=== PATIENT | male | born 1960 | race Caucasian/White ===

== ENCOUNTER 2016-10-29 16:05 | Emergency (ER) | payer BC ==
[~2016-10-29] VITALS: Ht 167.6 cm; Wt 122.5 kg
[~2016-10-29 16:05] MED LIST: ALBUAER2 INH; ASPCH81X PO; ATEN-175 PO; B-COCAP2 PO; BNC/4025 PO; CINNAMON PO; MULT-506 PO; OMEG10007 PO
[2016-10-29 16:08] VITALS: TEMP 36.8
[2016-10-29] MEDS ORDERED: ALBUT/IPRATROP 3MG/0.5MG NEB 3 ML VIAL INH STA ×2 (17:18→20:26)
[2016-10-29] MEDS ORDERED: METHYLPREDNISOLONE 125 MG VIAL IV STA (17:23)
[2016-10-29 17:26] VITALS: Ht 167.6 cm; Wt 122.5 kg
[2016-10-29 17:38] LABS: BASO % 0.6 %; BASO ABS # 0.02 K/uL (0-0.2); COMPLETE YES; EOS % 3.9 %; HEMATOCRIT 43.1 % (42-52); IG% 0.3 %; LYMPH % 35.3 %; LYMPH ABS # 1.28 K/uL (1.2-3.4); MEAN CELL VOLUME 89.6 fL (80-100); MEAN CORPUSCULAR HEMOGLOBIN 30.4 pg (25-34); MEAN CORPUSCULAR HGB CONC 33.9 g/dl (32-36); MEAN PLATELET VOLUME 10.1 fL (7.4-10.4); MONO % 9.6 %; NEUT % 50.3 %; PLATELET COUNT 195 K/uL (130-400); RED BLOOD COUNT 4.81 M/uL (4.7-6.1); WHITE BLOOD COUNT 3.63 K/uL (4.8-10.8)
[2016-10-29] MEDS ORDERED: ONDANSETRON INJ 2 MG/ML 2 ML VIAL ONE (17:41)
[2016-10-29] MEDS ORDERED: TRAM-10 PO (17:44)
[2016-10-29] MEDS ORDERED: PHEN-905 PO (17:44)
[2016-10-29] MEDS ORDERED: DICL-201 PO (17:44)
[2016-10-29 17:46] VITALS: O2SAT 97
--- NOTE | 2016-10-29 17:56 | DIAGNOSTIC IMAGING REPORT ---
CHEST ONE VIEW PORTABLE HISTORY: EVALUATE RESPIRATORY DISTRESS.DYSPNEA COMPARISON: Chest 11/22/2015. FINDINGS: Mild enlargement cardiac silhouette. This has progressed. The lungs are clear. No pleural effusions. No pneumothorax. IMPRESSION: Mild enlargement of the cardiac silhouette which has progressed in the interval. This could be due to cardiomegaly or a pericardial effusion. Follow-up echocardiogram should be considered for further evaluation. Electronically signed by: Shai Carbajal M.D. 10/29/2016 5:54 PM Dictated Date/Time: 10/29/2016 5:53 PM
[2016-10-29 18:24] LABS: ALKALINE PHOSPHATASE 44 U/L (45-117); ALT/SGPT 46 U/L (12-78); BLOOD UREA NITROGEN 17 mg/dl (7-18); CARBON DIOXIDE 28 mmol/L (21-32); CHLORIDE 104 mmol/L (98-107); CREATININE 0.79 mg/dl (0.60-1.40); GLUCOSE 98 mg/dl (70-99)
[2016-10-29 18:25] LABS: ALB/GLOB RATIO 0.9 (0.9-2); AST/SGOT 21 U/L (15-37); BUN/CREATININE RATIO 21.1 (10-20); POTASSIUM 3.9 mmol/L (3.5-5.1); SODIUM 142 mmol/L (136-145)
[2016-10-29 20:41] LABS: URINE APPEARANCE CLEAR (CLEAR); URINE BILIRUBIN NEG (NEG); URINE COLOR DK YELLOW; URINE NITRITE NEG (NEG); URINE SPECIFIC GRAVITY 1.027 (1.000-1.030); UROBILINOGEN NEG (NEG)
[2016-10-29 20:47] LABS: MANUAL MICROSCOPIC REQUIRED? NO; REVIEW REQ? NO
[2016-10-29] MEDS ORDERED: PRED50TA PO (21:10)
[2016-10-29] MEDS ORDERED: ALBUTEROL HFA 8 GM INHALER INH ONE (21:15)
[2016-10-29 21:21] VITALS: BP 96/67; PULSE 81; O2SAT 95
--- NOTE | 2016-10-29 23:23 | EMERGENCY ROOM VISIT NOTE ---
History Report prepared by Jyothiibmykel: Chelsie Macedo Under the Supervision of: Dr. Vince Lerner M.D. First contact with patient: 17:02 Chief Complaint: FLU LIKE SX Stated Complaint: COUGH, RUNNY NOSE History of Present Illness The patient is a 55 year old male who presents to the Emergency Room with complaints of a worsening cough that started on October 11, 2016. He denies any fevers but admits to some recent shortness of breath. An Albuterol inhaler has provided moderate relief for the cough. The patient reports he feels like there is a "rattling" in his chest when he breathes. He notes he took NyQuil last night, which helped him sleep, but today his cough worsened and he has started experiencing pain around the top of his rib cage from the amount of coughing. He denies any recent sick contacts, but notes he was off work because of the recent holidays and just started back to work late last week. The patient also denies any LOC, headache, chills, diaphoresis, visual changes, neck pain, chest pain, nausea, vomiting, abdominal pain, back pain, melena, hematochezia, urinary symptoms, numbness, weakness, lymphadenopathy, rash, or other complaints. Source of History: patient Onset: October 11, 2016 Position: chest Timing: worsening Modifying Factors (Relieving): other (Albuterol inhaler ) Associated Symptoms: + SOB Review of Systems See HPI for pertinent positives and negatives. A total of ten systems were reviewed and were otherwise negative. Past Medical & Surgical Medical Problems: (1) Asthma (2) Hypertension Social History Smoking Status: Never Smoker Alcohol Use: none Drug Use: none Marital Status: single Housing Status: lives with family Occupation Status: employed Current/Historical Medications Scheduled Aspirin (Aspirin Chewable), 81 MG PO QPM Atenolol (Tenormin), 100 MG PO QPM Diclofenac (Voltaren), 75 MG PO DAILY Fish Oil ([place]-3), 1 CAP PO QPM Multivitamin (Multivitamin), 1 TAB PO QPM Olmesartan/Hctz (Benicar Hct 40/25), 1 TAB PO QPM Prednisone (Prednisone), 50 MG PO DAILY Vitamin B Cmplx/Vitc/Folic Ac (Nephrocaps), 1 CAP PO QPM [Cinnamon], 2,000 MG PO QPM Scheduled PRN Albuterol (Ventolin Hfa), 1-2 PUFFS INH BID PRN for Shortness of Breath Lndobdwbgbkil-Rvroajhoig-Totff (Nyquil Severe Cold/Flu 5-6.25-10-325 mg/15Ml), 30 ML PO DIRECTED PRN for Cough Tramadol (Ultram), 50 MG PO HS PRN for Pain Allergies Coded Allergies: NO KNOWN DRUG ALLERGIES (Verified Allergy, Unknown, ., 10/29/16) Physical Exam Vital Signs Date Time Temp Pulse Resp B/P Pulse Ox O2 Delivery O2 Flow Rate FiO2 10/29/16 21:21 81 16 96/67 95 10/29/16 19:41 64 20 106/72 94 Room Air 10/29/16 18:01 73 10/29/16 17:56 65 20 107/78 100 Room Air 10/29/16 17:46 97 Room Air 10/29/16 16:08 36.8 72 17 129/94 95 Room Air Physical Exam GENERAL: Awake, alert, well-appearing, in no distress HENT: Normocephalic, atraumatic. Oropharynx unremarkable. EYES: Normal conjunctiva. Sclera non-icteric. NECK: Supple. No nuchal rigidity. FROM. No JVD. RESPIRATORY: Expiratory wheezing bilaterally, worse on the right, scattered rhonchi. CARDIAC: Regular rate, normal rhythm. Extremities warm and well perfused. Pulses equal. ABDOMEN: Soft, non-distended. No tenderness to palpation. No rebound or guarding. No masses. RECTAL: Deferred. MUSCULOSKELETAL: Chest examination reveals no tenderness. The back is symmetrical on inspection without obvious abnormality. There is no CVA tenderness to palpation. No joint edema. LOWER EXTREMITIES: Calves are equal size bilaterally and non-tender. No edema. No discoloration. NEURO: Normal sensorium. No sensory or motor deficits noted. SKIN: No rash or jaundice noted. Medical Decision & Procedures ER Provider Diagnostic Interpretation: This X-Ray was reviewed and interpreted by myself and the radiologist. CHEST ONE VIEW PORTABLE HISTORY: EVALUATE RESPIRATORY DISTRESS, DYSPNEA COMPARISON: Chest 11/22/2015. FINDINGS: Mild enlargement cardiac silhouette. This has progressed. The lungs are clear. No pleural effusions. No pneumothorax. IMPRESSION: Mild enlargement of the cardiac silhouette which has progressed in the interval. This could be due to cardiomegaly or a pericardial effusion. Follow-up echocardiogram should be considered for further evaluation. Electronically signed by: Shai Carbajal M.D. 10/29/2016 5:54 PM Dictated Date/Time: 10/29/2016 5:53 PM Laboratory Results 10/29/16 17:18 Red Blood Count 4.81, Mean Corpuscular Volume 89.6, Mean Corpuscular Hemoglobin 30.4, Mean Corpuscular Hemoglobin Concent 33.9, Mean Platelet Volume 10.1, Neutrophils (%) (Auto) 50.3, Lymphocytes (%) (Auto) 35.3, Monocytes (%) (Auto) 9.6, Eosinophils (%) (Auto) 3.9, Basophils (%) (Auto) 0.6, Neutrophils # (Auto) 1.83, Lymphocytes # (Auto) 1.28, Monocytes # (Auto) 0.35, Eosinophils # (Auto) 0.14, Basophils # (Auto) 0.02 10/29/16 17:18 Test 10/29/16 17:18 10/29/16 20:21 White Blood Count 3.63 K/uL (4.8-10.8) Red Blood Count 4.81 M/uL (4.7-6.1) Hemoglobin 14.6 g/dL (14.0-18.0) Hematocrit 43.1 % (42-52) Mean Corpuscular Volume 89.6 fL (80-100) Mean Corpuscular Hemoglobin 30.4 pg (25-34) Mean Corpuscular Hemoglobin Concent 33.9 g/dl (32-36) Platelet Count 195 K/uL (130-400) Mean Platelet Volume 10.1 fL (7.4-10.4) Neutrophils (%) (Auto) 50.3 % Lymphocytes (%) (Auto) 35.3 % Monocytes (%) (Auto) 9.6 % Eosinophils (%) (Auto) 3.9 % Basophils (%) (Auto) 0.6 % Neutrophils # (Auto) 1.83 K/uL (1.4-6.5) Lymphocytes # (Auto) 1.28 K/uL (1.2-3.4) Monocytes # (Auto) 0.35 K/uL (0.11-0.59) Eosinophils # (Auto) 0.14 K/uL (0-0.5) Basophils # (Auto) 0.02 K/uL (0-0.2) RDW Standard Deviation 44.5 fL (36.4-46.3) RDW Coefficient of Variation 13.5 % (11.5-14.5) Immature Granulocyte % (Auto) 0.3 % Immature Granulocyte # (Auto) 0.01 K/uL (0.00-0.02) Anion Gap 10.0 mmol/L (3-11) Est Creatinine Clear Calc Drug Dose 127.3 ml/min Estimated GFR () 115.5 Estimated GFR (Non- 99.7 BUN/Creatinine Ratio 21.1 (10-20) Calcium Level 9.0 mg/dl (8.5-10.1) Total Bilirubin 0.3 mg/dl (0.2-1) Aspartate Amino Transf (AST/SGOT) 21 U/L (15-37) Alanine Aminotransferase (ALT/SGPT) 46 U/L (12-78) Alkaline Phosphatase 44 U/L (45-117) Troponin I < 0.015 ng/ml (0-0.045) Total Protein 7.5 gm/dl (6.4-8.2) Albumin 3.6 gm/dl (3.4-5.0) Globulin 3.9 gm/dl (2.5-4.0) Albumin/Globulin Ratio 0.9 (0.9-2) Urine Color DK YELLOW Urine Appearance CLEAR (CLEAR) Urine pH 6.0 (4.5-7.5) Urine Specific Damar 1.027 (1.000-1.030) Urine Protein NEG (NEG) Urine Glucose (UA) NEG (NEG) Urine Ketones NEG (NEG) Urine Occult Blood NEG (NEG) Urine Nitrite NEG (NEG) Urine Bilirubin NEG (NEG) Urine Urobilinogen NEG (NEG) Urine Leukocyte Esterase NEG (NEG) Laboratory results reviewed by me Medications Administered Medications (Trade) Dose Ordered Sig/Kristin Route Start Time Stop Time Status Last Admin Dose Admin Albuterol/ Ipratropium (Duoneb) 3 ml NOW STAT INH 10/29/16 17:18 10/29/16 17:20 DC 10/29/16 17:38 3 ML Methylprednisolone Sodium Succinate (Solu-Medrol IV) 125 mg NOW STAT IV 10/29/16 17:23 10/29/16 17:24 DC 1/9/17 17:38 125 MG Ondansetron HCl (Zofran Inj) 4 mg STK-MED ONCE .ROUTE 10/29/16 17:41 10/29/16 17:42 DC 10/29/16 17:45 4 MG Albuterol/ Ipratropium (Duoneb) 3 ml NOW STAT INH 10/29/16 20:26 10/29/16 20:27 DC 10/29/16 20:34 3 ML Prednisone (PredniSONE TAB) 60 mg NOW STAT PO 10/29/16 20:28 10/29/16 20:30 DC 10/29/16 20:34 60 MG Albuterol (Ventolin Hfa Inhaler) 2 puffs NOW ONCE INH 10/29/16 21:15 10/29/16 21:16 DC 10/29/16 21:15 2 PUFFS ECG Indication: weakness Rate (beats per minute): 57 Rhythm: sinus bradycardia Findings: RBBB, no acute ischemic change, no ectopy ED Course 1715: The patient was evaluated in room B7. A complete history and physical exam was performed. 1717: DuoNeb 3 ml INH. 172: Solu-Medrol 125 mg IV. 1740: Zofran 4 mg IV. 2025: DuoNeb 3 ml INH. 2027: Prednisone 60 mg PO. 2029: I reevaluated the patient. He is feeling much better. He is still wheezing but is doing well. I will order another nebulizer treatment. 2114: Albuterol 2 puffs INH. 2119: I reevaluated the patient. He is feeling much better. I discussed his results and discharge instructions and he verbalized complete agreement and understanding. Medical Decision Triage Nursing notes reviewed. The patient's presentation and history were concerning for respiratory issues. Etiologies such as pneumonia, COPD, reactive airway disease, CHF, cardiac ischemia, pulmonary embolism, pneumothorax, musculoskeletal, infections, gastrointestinal, as well as others were entertained. The patient was wheezing. He was given a DuoNeb as well as Solu-Medrol. Chest x-ray did not reveal any evidence of pneumonia. On reassessment the patient was feeling better. He notes this started out when he had a flulike illness. I suspect that he has a qenm-izruqdngt-sexb syndrome. He has a history of reactive airways. The patient was given a second neb treatment and felt much better. His ECG was negative for acute changes. A CBC, chemistry panel, troponin and LFTs are normal. The patient was given prednisone and an albuterol MDI her to discharge. There is no indication for antibiotics at this time. The patient felt comfortable with conservative management. Incidentally patient was noted to have a minimally enlarged cardiac silhouette compared to prior. He was told to follow with his PCP. He will be contacted with this radiologic finding in the morning and notified that his PCP should pay attention to this and an outpatient echo was recommended. He has no signs to suggest CHF, myocarditis, or tamponade. By the evaluation outlined above other emergent etiologies such as those listed in the differential, as well as others, were deemed relatively unlikely. The patient was informed about the findings as listed above. All questions were answered and he was pleased with the treatment. Return instructions were outlined and the patient was discharged in stable condition. The patient was referred to his PCP for follow-up this week for a recheck of the current condition. The chart was completed utilizing [employer] voice recognition software. Grammatical errors, random word insertions, pronoun errors, and incomplete sentences are an occasional consequence of this system due to software limitations, ambient noise, and hardware issues. Any formal questions or concerns about the content, text, or information contained within the body of this dictation should be directly addressed to the physician for clarification. Impression Primary Impression: RAD (reactive airway disease) Additional Impression: Post-influenza syndrome Scribe Attestation The scribe's documentation has been prepared under my direction and personally reviewed by me in its entirety. I confirm that the note above accurately reflects all work, treatment, procedures, and medical decision making performed by me. Departure Information Dispostion Home / Self-Care Prescriptions Prednisone (Prednisone) 50 Mg Tab 50 MG PO DAILY for 4 Days, #4 TAB Prov: Vince Lerner MD 10/29/16 Referrals Jackson Morales D.O.Int.Med. (PCP) Patient Instructions A Signature Page, My [facility] Additional Instructions Diagnosis: 1. Reactive airway disease 2. Yjpa-wyzpahrvj-rqtr syndrome Albuterol Inhaler: Take 2 puffs four times daily for five days, then as needed. Prednisone 50mg: Once daily until the prescription is finished. It is best to take this earlier in the day as some patients note occasional difficulty falling asleep when taken in the late evening. Acetaminophen(Tylenol) may be used for fever or pain. Use 1000mg every six hours as needed. Avoid using more than 4000mg in a 24 hour period. (AND/OR) Ibuprofen(Motrin, Advil) may be used for fever or pain. Use 600mg every six hours as needed. Take with food. Avoid using more than 2400mg in a 24 hour period. Do not use 2400mg per day for more than three consecutive days without physician direction. Prolonged inappropriate use can lead to stomach upset or ulcers. Rest and drink plenty of fluids. Avoid smoke/smoking, fumes, dust, or any triggers in the past that may have affected your breathing. Continue current medications. Return to the ER for chest pain, difficulty breathing, fevers, vomiting, worsening of your condition, or as needed. Follow up with your primary physician this week for a recheck of your current condition.
== END 2016-10-29 21:44 | disposition home or self-care (01) ==
LOC: C.EDB 16:08
DX: J45.909 Unspecified asthma, uncomplicated (principal); R05 Cough; R06.02 Shortness of breath; I10 Essential (primary) hypertension; Z79.82 Long term (current) use of aspirin; Z79.899 Other long term (current) drug therapy

== ENCOUNTER → 2017-01-21 | Outpatient (CLI) | payer BC ==
[~2017-01-21] MED LIST changes: +DICL-201 PO; +LPT/20 PO; +PHEN-905 PO; +TRAM-10 PO
[2017-01-21 16:45] LABS: ALT/SGPT 94 U/L (12-78); BLOOD UREA NITROGEN 21 mg/dl (7-18); BUN/CREATININE RATIO 27.4 (10-20); CALCIUM 9.1 mg/dl (8.5-10.1); CARBON DIOXIDE 31 mmol/L (21-32); CHLORIDE 102 mmol/L (98-107); CREATININE 0.78 mg/dl (0.60-1.40); GLUCOSE 100 mg/dl (70-99); POTASSIUM 3.7 mmol/L (3.5-5.1); SODIUM 141 mmol/L (136-145)
[2017-01-21 16:48] LABS: ALKALINE PHOSPHATASE 50 U/L (45-117); AST/SGOT 35 U/L (15-37); CHOLESTEROL 233 mg/dl (0-200); CHOLESTEROL/HDL RATIO 6.5; HDL CHOLESTEROL 36 mg/dl; LDL CHOLESTEROL CALCULATED 120 mg/dl; TRIGLYCERIDES 386 mg/dl (0-150); VERY LOW DENSITY LIPOPROT CALC 77 mg/dl
== END | disposition home or self-care (01) ==
LOC: C.LAB1850 14:35
PROVIDERS: ATTEND Family Medicine
DX: I10 Essential (primary) hypertension (principal); E78.5 Hyperlipidemia, unspecified

== ENCOUNTER 2017-02-16 16:26 | Emergency (ER) | payer BC ==
[~2017-02-16] VITALS: Ht 167.6 cm; Wt 127.0 kg
[~2017-02-16 16:26] MED LIST changes: -LPT/20 PO
[2017-02-16 16:29] VITALS: TEMP 36.7; Ht 167.6 cm; Wt 127.0 kg
[2017-02-16] MEDS ORDERED: LPT/20 PO (16:39)
[2017-02-16] MEDS ORDERED: CEPHALEXIN MONOHYDRATE 250 MG CAP PO ONE (16:45)
--- NOTE | 2017-02-16 16:49 | DIAGNOSTIC IMAGING REPORT ---
RIGHT FOOT 3 VIEWS HISTORY: R foot pain Right COMPARISON: None. FINDINGS: There is no fracture or dislocation. Mild dorsal soft tissue swelling. Small plantar heel spur. Vascular calcifications. Severe osteoarthritis at the first MTP joint. IMPRESSION: No fractures. Severe osteoarthritis at the first MTP joint. Electronically signed by: Shai aCrbajal M.D. 02/16/2017 4:48 PM Dictated Date/Time: 02/16/2017 4:47 PM
[2017-02-16] MEDS ORDERED: OXYCODONE HCL IR 5 MG TAB (IMMEDIATE RELEASE) PO STA (17:12)
[2017-02-16 17:35] VITALS: BP 116/73; PULSE 53; O2SAT 96
--- NOTE | 2017-02-16 19:46 | EMERGENCY ROOM VISIT NOTE ---
History First contact with patient: 16:34 Chief Complaint: FOOT PAIN Stated Complaint: PAIN IN R FOOT History of Present Illness The patient is a 56 year old male who presents to the Emergency Room with complaints of persistent right foot pain for the past several weeks. The patient reports a history of left lower extremity trauma with resulting left ankle surgery. He is planned for an upcoming left total knee arthroplasty. He is followed by Dr. Marcus. The patient believes that he is favoring his left lower extremity, and putting more weight on the right. He reports pain through the arch of the foot. He denies any ankle or leg pain, knee pain or significant back pain. The patient has taken diclofenac and Ultram as part of a pain management regimen with Dr. Morales, his PCP. At its worst, the patient rates his discomfort a 9 out of 10. Review of Systems 10 system review was performed and was negative except for pertinent positives and negatives as indicated in history of present illness Past Medical/Surgical History Medical Problems: (1) Asthma (2) Asthma, Unspecified (3) Carpal Tunnel Syndrome (4) Chronic Liver Dis Nec (5) Diverticulosis Colon (W/O Ment Of Hemorrhage) (6) Hyperlipidemia, Unspecified (7) Hypertension (8) Hypertension Nos Family History Unremarkable Social History Smoking Status: Never Smoker Alcohol Use: none Drug Use: none Marital Status: single Housing Status: lives with family Occupation Status: employed Current/Historical Medications Scheduled Aspirin (Aspirin Chewable), 81 MG PO QPM Atenolol (Tenormin), 100 MG PO QPM Atorvastatin (Atorvastatin Calcium), 1 TAB PO DAILY Diclofenac (Voltaren), 75 MG PO DAILY Fish Oil ([place]-3), 1 CAP PO QPM Multivitamin (Multivitamin), 1 TAB PO QPM Olmesartan/Hctz (Benicar Hct 40/25), 1 TAB PO QPM Scheduled PRN Otsufcdiwdxik-Ssrjoyfbbf-Iynnk (Nyquil Severe Cold/Flu 5-6.25-10-325 mg/15Ml), 30 ML PO DIRECTED PRN for Cough Tramadol (Ultram), 50 MG PO HS PRN for Pain Allergies Coded Allergies: NO KNOWN DRUG ALLERGIES (Verified Allergy, Unknown, ., 02/16/17) Physical Exam Vital Signs Date Time Temp Pulse Resp B/P Pulse Ox O2 Delivery O2 Flow Rate FiO2 02/16/17 17:35 53 116/73 96 02/16/17 16:29 36.7 58 20 118/81 95 Room Air Physical Exam CONSTITUTIONAL: Obese male, alert and oriented X 3 with positive affect. HEENT: Normocephalic, atraumatic. Pupils equal, round and reactive. NECK: Full active range of motion without discomfort. RESPIRATORY: Clear to auscultation bilaterally with no wheezing, crackles, rhonchi or stridor. CARDIOVASCULAR: Regular rate and rhythm with no murmurs, rubs or gallops. MUSCULOSKELETAL: Examination shows notable tenderness to palpation through the middle plantar fascia complex. He has no tenderness to palpation across the dorsal midfoot, phalanges or metatarsals. No tenderness to palpation about the ankle or tendons. Negative anterior draw. Pedal pulses are intact. INTEGUMENTARY: No rash or other significant dermatologic conditions noted. NEUROLOGIC: No focal neurologic deficits noted. Right foot and toes are sensory intact. Medical Decision & Procedures ER Provider Diagnostic Interpretation: My interpretation of right foot x-ray shows severe first MTP joint degenerative changes, otherwise no other acute fractures or dislocations noted. Radiologist report is as follows: RIGHT FOOT 3 VIEWS HISTORY: R foot pain Right COMPARISON: None. FINDINGS: There is no fracture or dislocation. Mild dorsal soft tissue swelling. Small plantar heel spur. Vascular calcifications. Severe osteoarthritis at the first MTP joint. IMPRESSION: No fractures. Severe osteoarthritis at the first MTP joint. Medications Administered Medications (Trade) Dose Ordered Sig/Kristin Route Start Time Stop Time Status Last Admin Dose Admin Cephalexin Monohydrate (Keflex Cap) 500 mg NOW ONCE PO 02/16/17 16:45 02/16/17 17:13 DC 02/16/17 17:03 500 MG Oxycodone HCl (Roxicodone Immediate Rel Tab) 5 mg NOW STAT PO 02/16/17 17:12 02/16/17 17:13 DC 02/16/17 17:17 5 MG ED Course Patient history and physical exam were performed. Nurse's notes were reviewed. The patient refused any analgesics. X-rays of the right foot shows severe osteoarthritic changes of the first MTP joint, otherwise is normal. The patient was advised that his clinical exam and history are most consistent with a plantar fascitis. I did discuss the importance of deep ice massages and stretching. He was encouraged to discuss further pain management options with his PCP as he does receive monthly prescriptions for Ultram. He was also instructed to follow-up with Dr. Marcus to discuss further treatment options. The patient was happy with plan of care, voice understanding of all discharge instructions, and rated his discomfort a 3 out of 10 at the time of discharge. Patient does have crutches with him, and was encouraged to use that as well to help with pain and ambulation. [place] Drug Monitoring Program Search Results: patient reviewed within database, see additional documentation Impression Primary Impression: Plantar fasciitis, right Departure Information Referrals Jackson Morales, D.O.Int.Med. (PCP) Patient Instructions My [facility]
== END 2017-02-16 17:36 | disposition home or self-care (01) ==
LOC: C.EDB 16:27 → C.EDD 17:36
DX: M72.2 Plantar fascial fibromatosis (principal); J45.909 Unspecified asthma, uncomplicated; I10 Essential (primary) hypertension; E78.5 Hyperlipidemia, unspecified; Z79.82 Long term (current) use of aspirin; Z79.899 Other long term (current) drug therapy

== ENCOUNTER → 2017-10-07 | Outpatient (CLI) | payer BC ==
[~2017-10-07] MED LIST changes: -ALBUAER2 INH; -B-COCAP2 PO; -CINNAMON PO; +LPT/20 PO
== END | disposition home or self-care (01) ==
LOC: C.CTS 12:44
PROVIDERS: ATTEND Orthopaedic Surgery Sports Medicine
DX: M17.12 Unilateral primary osteoarthritis, left knee (principal)

== ENCOUNTER 2017-11-26 10:12 | Inpatient (IN) | payer BC ==
[2017-11-04 09:53] VITALS: BMI 40.0
--- NOTE | 2017-11-04 10:31 | PAT Medication Instructions ---
Service Date Nov 04, 2017. Current Home Medication List Albuterol Sulfate (Proair Respiclick), 2 PUFFS INH QD PRN for SOB/Wheezing Aspirin (Aspirin Chewable), 81 MG PO QD@0100 Atorvastatin (Lipitor), 1 TAB PO QD@0100 Cinnamon (Cinnamon), 1,000 MG PO QD@0100 Diclofenac (Voltaren), 75 MG PO BID Metoprolol Tartrate (Metoprolol Tartrate), 1 TAB PO BID Multivitamin (Multivitamin), 1 TAB PO QD@0100 Naproxen (Aleve), 220-440 MG PO QD PRN for Pain Olmesartan/Hctz (Benicar Hct 40/25), 1 TAB PO QD@0100 Tramadol (Ultram), 50 MG PO HS PRN for Pain Vitamin B Cmplx/Vitc/Folic Ac (Nephrocaps), 1 CAP PO QD@0100 Medication Instructions For Your Scheduled Surgery - Check with surgeon for instructions: Naproxen (Aleve), 220-440 MG PO QD PRN for Pain Diclofenac (Voltaren), 75 MG PO BID Cinnamon (Cinnamon), 1,000 MG PO QD@0100 - Hold the following medications the morning of surgery: Multivitamin (Multivitamin), 1 TAB PO QD@0100 Olmesartan/Hctz (Benicar Hct 40/25), 1 TAB PO QD@0100 Vitamin B Cmplx/Vitc/Folic Ac (Nephrocaps), 1 CAP PO QD@0100 - Take the following medications the morning of surgery with a sip of water: Tramadol (Ultram), 50 MG PO HS PRN for Pain (okay to take up to 4 hours prior to surgery if needed) Metoprolol Tartrate (Metoprolol Tartrate), 1 TAB PO BID Atorvastatin (Lipitor), 1 TAB PO QD@0100 Albuterol Sulfate (Proair Respiclick), 2 PUFFS INH QD PRN for SOB/Wheezing (if needed) Aspirin (Aspirin Chewable), 81 MG PO QD@0100 (okay to continue per surgeon) - Take the following medications as scheduled the night before surgery: Tramadol (Ultram), 50 MG PO HS PRN for Pain (if needed) Metoprolol Tartrate (Metoprolol Tartrate), 1 TAB PO BID Albuterol Sulfate (Proair Respiclick), 2 PUFFS INH QD PRN for SOB/Wheezing (if needed) If you have any questions please call us at [phone] or [phone] or [phone]
--- NOTE | 2017-11-04 10:56 | DIAGNOSTIC IMAGING REPORT ---
TWO VIEW CHEST CLINICAL HISTORY: Preoperative examination. FINDINGS: PA and lateral chest radiographs are compared to study dated 10/29/2016. The cardiomediastinal silhouette is top normal for projection. The lungs and pleural spaces are clear. There is no pneumothorax. The bony thorax appears intact. IMPRESSION: No active disease in the chest. Electronically signed by: Sea Terry M.D. 11/04/2017 10:54 AM Dictated Date/Time: 11/04/2017 10:54 AM
[2017-11-04 11:44] LABS: BASO % 0.5 %; BASO ABS # 0.03 K/uL (0-0.2); EOS % 3.5 %; HEMATOCRIT 42.1 % (42-52); HEMOGLOBIN 14.3 g/dL (14.0-18.0); IG# 0.01 K/uL (0.00-0.02); LYMPH % 20.2 %; LYMPH ABS # 1.15 K/uL (1.2-3.4); MEAN CELL VOLUME 91.9 fL (80-100); MEAN CORPUSCULAR HEMOGLOBIN 31.2 pg (25-34); MEAN PLATELET VOLUME 10.7 fL (7.4-10.4); MONO % 8.6 %; MONO ABS # 0.49 K/uL (0.11-0.59); PLATELET COUNT 203 K/uL (130-400); RED CELL DISTRIBUTION WIDTH CV 13.4 % (11.5-14.5); WHITE BLOOD COUNT 5.68 K/uL (4.8-10.8)
[2017-11-04 11:59] LABS: PTT PATIENT 25.7 SECONDS (21.0-31.0)
[2017-11-04 12:22] LABS: BLOOD UREA NITROGEN 25 mg/dl (7-18); CALCIUM 9.4 mg/dl (8.5-10.1); CARBON DIOXIDE 29 mmol/L (21-32); CREATININE 0.78 mg/dl (0.60-1.40); GLUCOSE 114 mg/dl (70-99); POTASSIUM 4.7 mmol/L (3.5-5.1); SODIUM 139 mmol/L (136-145)
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
[2017-11-26] VITALS (7 sets, daily range): BP systolic 91–121; BP diastolic 54–77; PULSE 49–72; TEMP 36.5–37.1; O2SAT 95–100; Ht 165.1 cm; Wt 109.9 kg
[~2017-11-26] VITALS: Ht 165.1 cm; Wt 109.9 kg
[~2017-11-26 10:12] MED LIST changes: +ACETAMINOPHEN 500 MG TAB PO SCH; +ALBU18002 INH; -ATEN-175 PO; +B-CO1CAP17 PO; +BUPIVACAINE 0.25% 30 ML VIAL ONE; +BUPIVACAINE 0.5 % 5 MG/1 ML PF 10ML VIAL ONE; +BUPIVACAINE LIPOSOME 266 MG, BUPIVACAINE/EPINEPHRINE INJ 50 ML, SODIUM CHLORIDE 0.9% PF... INFIL SCH; +CEFAZOLIN 2000MG IV PUSH 15 ML IV SCH; +CINN1CAP2 PO; +DEXAMETHASONE SOD INJ 4 MG/ML VIAL ONE; +EpINEphrine INJ 1MG/ML AMP 1 MG/ML AMP ONE; +FAMOTIDINE 20 MG TAB PO SCH; +FENTANYL CITRATE INJ 50 MCG/1 ML 2 ML VIAL ONE; +GABAPENTIN 300 MG CAP PO SCH; +LACTATED RINGER'S 1000ML 1,000 ML IV SCH; +LACTATED RINGER'S 1000ML 500 ML IV SCH; +LACTATED RINGER'S 1000ML IV SCH; +LPR50X PO; -LPT/20 PO; +LPT20 PO; +METOCLOPRAMIDE HCL 10 MG TAB PO SCH; +MIDAZOLAM HCL 1 MG/ML 2ML VIAL ONE; +NAPR1TAB9 PO; -OMEG10007 PO; -PHEN-905 PO; +SCOPOLAMINE 1.5 MG TDSY TD SCH; +TRANEXAMIC ACID INJ 1,000 MG in SYRINGE 0 ML IV SCH
[2017-11-26] MEDS ORDERED: ACET-1256 PO (10:50)
--- NOTE | 2017-11-26 10:58 | History & Physical Bridge Note ---
H&P Re-Evaluation Bridge Note: I have examined the patient, reviewed the History & Physical and in the interval since the performance of the History & Physical I have noted the following changes of clinical significance: No changes noted
[2017-11-26] MEDS ORDERED: ATROPINE SULFATE 0.1 MG/ML 5ML SYR IV PRN (12:45)
[2017-11-26] MEDS ORDERED: FENTANYL CITRATE INJ 50 MCG/1 ML 2 ML VIAL IV PRN (12:45)
[2017-11-26] MEDS ORDERED: EpHEDrine SULFATE INJ 50 MG/ML AMP IV PRN (12:45)
[2017-11-26] MEDS ORDERED: ONDANSETRON INJ 2 MG/ML 2 ML VIAL IV PRN ×2 (12:45→15:30)
[2017-11-26] MEDS ORDERED: LIDOCAINE HCL 2% 2 ML VIAL (20MG/ML) ONE ×2 (12:55→15:10)
[2017-11-26] MEDS ORDERED: PROPOFOL IV EMULSION 10 MG/ML 20 ML VIAL IV ONE ×2 (12:55→15:10)
[2017-11-26] MEDS ORDERED: ONDANSETRON INJ 2 MG/ML 2 ML VIAL ONE (12:55)
[2017-11-26] MEDS ORDERED: SODIUM CHLORIDE 0.9% PF 50 ML VIAL ONE (13:00)
[2017-11-26] MEDS ORDERED: BUPIVACAINE LIPOSOME 1/3% 266 MG/20 ML VIAL INFIL ONE (13:00)
[2017-11-26] MEDS ORDERED: BACITRACIN 50000 UNIT VIAL ONE (13:00)
[2017-11-26] MEDS ORDERED: VANCOMYCIN HCL 1000MG/20ML VIAL ONE (13:09)
[2017-11-26] MEDS ORDERED: EpINEphrine INJ 1MG/ML AMP 1 MG/ML AMP ONE (13:23)
[2017-11-26] MEDS ORDERED: BUPIVACAINE 0.25% 30 ML VIAL ONE (13:23)
--- NOTE | 2017-11-26 15:18 | [facility] Post Operative Brief Note ---
Immediate Operative Summary Operative Date Nov 26, 2017. Pre-Operative Diagnosis Left knee degenerative joint disease Post-Operative Diagnosis Left knee degenerative joint disease Procedure(s) Performed Left Total Knee Arthroplasty Surgeon Dr. Marcus Human Resources Designate Surgeon(s) Inocencio Tolliver PA-C Estimated Blood Loss 50ml Findings Consistent with Post-Op Diagnosis Fluids (cc crystalloids) 1900 cc Specimens a. left knee bone and tissue Anesthesia Type MAC Spinal Regional Disposition Accompanied Pt To Recover: no Disposition: Recovery Room / PACU
[2017-11-26] MEDS ORDERED: TAMSULOSIN HCL 0.4 MG CAP PO PRN (15:30)
[2017-11-26] MEDS ORDERED: ZOLPIDEM TARTRATE 5 MG TAB PO PRN (15:30)
[2017-11-26] MEDS ORDERED: CEFAZOLIN IV 2,000 MG in DEXTROSE 5% 50ML 50 ML IV SCH (15:30)
[2017-11-26] MEDS ORDERED: MAGNESIUM HYDROXIDE SUSP 30 ML UDC PO PRN (15:30)
[2017-11-26] MEDS ORDERED: BISACODYL 10 MG SUPP PR PRN (15:30)
[2017-11-26] MEDS ORDERED: SILVER SULFADIAZINE 1% CR 50 GM JAR EXT PRN (15:30)
[2017-11-26] MEDS ORDERED: MoRPHine SULFATE 2 MG/ML CARP IV PRN (15:30)
[2017-11-26] MEDS ORDERED: DiphenhydrAMINE HCL 50 MG/ML VIAL IV PRN (15:30)
[2017-11-26] MEDS ORDERED: METOCLOPRAMIDE HCL INJ 5 MG/ML 2 ML VIAL IV PRN (15:30)
[2017-11-26] MEDS ORDERED: ALUMINUM/MAGNESIUM/SIMETH (MAALOX MAX) 30 ML UDC PO PRN (15:30)
[2017-11-26] MEDS ORDERED: ALBUTEROL HFA INHALER 8.5 GM INH PRN (15:30)
--- NOTE | 2017-11-26 15:54 | DIAGNOSTIC IMAGING REPORT ---
L KNEE 1 OR 2 VIEWS ROUTINE HISTORY: 56 years-old Male AP/LATERAL IN PACU LEFT KNEE left knee arthroplasty. Degenerative joint disease. COMPARISON: Left knee radiographs 11/20/2017 TECHNIQUE: 2 views of the left knee FINDINGS: Orthopedic hardware involving the imaged medullary space of the femur redemonstrated. Postoperative changes compatible with recent placement of a left knee total joint arthroplasty with patellar resurfacing. Alignment is satisfactory. No periprosthetic fracture or retained foreign body identified. Anterior midline skin roberta are noted along with expected postsurgical soft tissue swelling and deep tissue air. Peripheral vascular disease. IMPRESSION: Left knee total joint arthroplasty and patellar resurfacing with satisfactory alignment. The above report was generated using voice recognition software. It may contain grammatical, syntax or spelling errors. Electronically signed by: Geremias Aquino M.D. 11/26/2017 3:53 PM Dictated Date/Time: 11/26/2017 3:51 PM
[2017-11-26] MEDS: CHECK SCOPOLAMINE PATCH PLACEMENT SCH (16:00)
--- NOTE | 2017-11-26 16:08 | Anesthesiology Progress Note ---
Anesthesia Post Op Note Date & Time Nov 26, 2017 at 16:08 Vital Signs Pain Intensity: 0 Vital Signs Past 12 Hours Date Time Temp Pulse Resp B/P (MAP) Pulse Ox O2 Delivery O2 Flow Rate FiO2 11/26/17 16:00 47 16 97/57 100 Nasal Cannula 4 11/26/17 15:50 51 16 91/54 100 Nasal Cannula 4 11/26/17 15:40 56 16 98/64 100 Nasal Cannula 4 11/26/17 15:30 48 16 95/54 100 Nasal Cannula 4 11/26/17 15:24 36.6 60 16 100/47 100 Nasal Cannula 4 11/26/17 11:01 36.9 66 20 102/73 97 Room Air Notes Mental Status: alert / awake / arousable, participated in evaluation Pt Amnestic to Procedure: Yes Nausea / Vomiting: adequately controlled Pain: adequately controlled Airway Patency, RR, SpO2: stable & adequate BP & HR: stable & adequate Hydration State: stable & adequate Neuraxial Anesthesia: was administered, sensory block is resolving Anesthetic Complications: no major complications apparent
[2017-11-26] MEDS: D5W AND 1/2NSS + 20MEQ KCL 1,000 ML IV SCH (18:36)
[2017-11-26] MEDS: OXYCODONE HCL IR 5 MG TAB (IMMEDIATE RELEASE) PO PRN ×2 (19:09→20:24)
[2017-11-26] MEDS: KETOROLAC TROMETHAMINE 30 MG/ML VIAL IV. SCH (20:27)
[2017-11-26] MEDS ORDERED: TRANEXAMIC ACID INJ 1,000 MG in SODIUM CHLORIDE 0.9% 100ML 100 ML IV SCH (21:00)
[2017-11-26] MEDS: DOCUSATE SODIUM 100 MG CAP PO SCH (21:14)
[2017-11-26] MEDS: SENNA 8.6 MG TAB PO SCH (21:15)
[2017-11-26] MEDS: ASPIRIN 325 MG ECTAB PO SCH (21:15)
[2017-11-26] MEDS: TAPENTADOL ER 50 MG TABCR PO SCH (21:17)
[2017-11-26] MEDS: METOPROLOL TARTRATE 50 MG TAB PO SCH (21:22)
[2017-11-26] MEDS: ACETAMINOPHEN 500 MG TAB PO SCH (21:23)
[2017-11-26] MEDS: CEFAZOLIN IV 2,000 MG in SYRINGE 0 ML IV SCH (21:23)
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
[2017-11-27] VITALS (11 sets, daily range): BP systolic 86–119; BP diastolic 52–72; PULSE 52–69; TEMP 36.6–36.8; O2SAT 94–97
[2017-11-27] MEDS ORDERED: NON-FORMULARY MEDICATION (Cinnamon 1,000 MG) PO SCH (01:00)
[2017-11-27] MEDS: MULTIVITAMIN TAB PO SCH (01:03)
[2017-11-27] MEDS: NEPHROCAPS PO SCH (01:03)
[2017-11-27] MEDS: HYDROCHLOROTHIAZIDE 25 MG TAB PO SCH (01:03)
[2017-11-27] MEDS: ATORVASTATIN 20 MG TAB PO SCH (01:04)
[2017-11-27] MEDS: OLMESARTAN MEDOXOMIL 40 MG TAB PO SCH (01:04)
[2017-11-27] MEDS: KETOROLAC TROMETHAMINE 30 MG/ML VIAL IV. SCH ×4 (02:31→19:31)
[2017-11-27] MEDS: D5W AND 1/2NSS + 20MEQ KCL 1,000 ML IV SCH ×2 (02:53→10:51)
[2017-11-27] MEDS: ACETAMINOPHEN 500 MG TAB PO SCH ×3 (05:50→21:53)
[2017-11-27] MEDS: CEFAZOLIN IV 2,000 MG in SYRINGE 0 ML IV SCH (05:50)
[2017-11-27] MEDS: CHECK SCOPOLAMINE PATCH PLACEMENT SCH ×3 (07:30→15:38)
[2017-11-27] MEDS: OXYCODONE HCL IR 5 MG TAB (IMMEDIATE RELEASE) PO PRN ×4 (07:37→21:56)
--- NOTE | 2017-11-27 07:57 | PROGRESS NOTE ---
DATE: 11/27/2017 SUBJECTIVE: A 56-year-old gentleman postop day 1 from a left knee replacement. He is doing well. Pain is controlled. No chest pain or shortness of breath. Not feeling dizzy or lightheaded. OBJECTIVE: VITAL SIGNS: Temperature is 36.8. Vital signs stable. GENERAL: Reveals a healthy, pleasant, middle-aged male. He is sitting up in bed and doing a heel prop and looks pretty comfortable. LUNGS: Clear to auscultation. HEART: Regular rate and rhythm. ABDOMEN: Soft, nontender, nondistended. EXTREMITIES: Grossly neurovascularly intact except as follows: Examination of left lower extremity reveals the dressing to be clean, dry and intact. Leg is well aligned. He can do a straight leg raise. He can dorsiflex and plantarflex his foot appropriately. He is neurologically intact. LABORATORY DATA: Labs are pending. ASSESSMENT: A 56-year-old gentleman postop day 1 from a left knee replacement, doing pretty well. His pain is controlled. He is neurologically intact. PLAN: 1. DVT prophylaxis including thigh-high TEDs, SCDs, and aspirin twice a day. 2. PT/OT. Weight bear as tolerated. Left total knee protocol. 3. Pain control, doing pretty well with current pain regimen. 4. Disposition: Plan to discharge to home with some home health once adequately recovered.
[2017-11-27 08:04] LABS: HEMATOCRIT 34.7 % (42-52); MEAN CELL VOLUME 89.7 fL (80-100); MEAN CORPUSCULAR HGB CONC 34.6 g/dl (32-36); PLATELET COUNT 179 K/uL (130-400); RED CELL DISTRIBUTION WIDTH CV 12.8 % (11.5-14.5); RED CELL DISTRIBUTION WIDTH SD 41.6 fL (36.4-46.3); WHITE BLOOD COUNT 11.36 K/uL (4.8-10.8)
[2017-11-27] MEDS: ASPIRIN 325 MG ECTAB PO SCH ×2 (08:37→21:53)
[2017-11-27] MEDS: FERROUS GLUCONATE 324 MG TAB PO SCH ×3 (08:37→17:19)
[2017-11-27] MEDS: DOCUSATE SODIUM 100 MG CAP PO SCH ×2 (08:37→21:53)
[2017-11-27 08:38] LABS: CALCIUM 8.2 mg/dl (8.5-10.1); CREATININE 0.72 mg/dl (0.60-1.40); POTASSIUM 3.7 mmol/L (3.5-5.1)
[2017-11-27] MEDS: PANTOprazole SOD 40 MG TAB PO SCH (08:38)
[2017-11-27] MEDS: METOPROLOL TARTRATE 50 MG TAB PO SCH ×2 (08:40→21:00)
[2017-11-27] MEDS: TAPENTADOL ER 50 MG TABCR PO SCH ×2 (08:41→21:53)
[2017-11-27] MEDS ORDERED: MULTIVITAMIN TAB PO SCH (09:00)
--- NOTE | 2017-11-27 10:10 | Anesthesiology Progress Note ---
Anesthesia Post Op Note Date & Time Nov 27, 2017 at 10:10 Vital Signs Vital Signs Past 12 Hours Date Time Temp Pulse Resp B/P (MAP) Pulse Ox O2 Delivery O2 Flow Rate FiO2 11/27/17 08:30 52 112/72 (85) 11/27/17 07:30 Room Air 11/27/17 07:08 36.8 66 17 91/52 (65) 96 Room Air 11/27/17 04:00 60 106/65 (79) 11/27/17 03:12 97/59 (72) 11/27/17 03:10 36.7 65 16 86/58 (67) 94 Room Air 11/27/17 00:25 97 Room Air 11/26/17 23:16 36.5 50 16 110/73 (85) 95 Room Air Notes Mental Status: alert / awake / arousable, participated in evaluation Pt Amnestic to Procedure: Yes Nausea / Vomiting: adequately controlled Pain: adequately controlled Airway Patency, RR, SpO2: stable & adequate BP & HR: stable & adequate Hydration State: stable & adequate Neuraxial Anesthesia: was administered, sensory block resolved Anesthetic Complications: no major complications apparent
[2017-11-27] MEDS ORDERED: ACET-24 PO (11:29)
[2017-11-27] MEDS ORDERED: ASPEC325 PO (11:29)
[2017-11-27] MEDS ORDERED: RXC5 PO (11:29)
--- NOTE | 2017-11-27 11:31 | Discharge Instructions ---
Discharge Instructions Date of Service Nov 27, 2017. Admission Reason for Admission: Left Knee Degenerative Joint Disease Discharge Discharge Diagnosis / Problem: Left Knee REplacement Discharge Goals Goal(s): Decrease discomfort, Improve function, Increase independence, Improve disease control, Therapeutic intervention Activity Recommendations Activity Limitations: per Instructions/Follow-up section Weightbearing Status: Left weightbearing . Instructions / Follow-Up Instructions / Follow-Up ACTIVITY RECOMMENDATIONS: Physical Therapy: * You will go to physical therapy three times each week for four to six weeks after your surgery in order to regain your knee range of motion and to retrain your knee to work properly. * It is just as important to make sure you are getting your knee perfectly straight as it is to regain your knee bend. * Taking a pain pill an hour before therapy can help you have a more productive and comfortable therapy session. Home Exercise: * You were shown a series of exercises (heel props, heel slides, etc.) in the hospital. Do these exercises three to four times each day including the exercises you were shown in physical therapy. Walking: * Get up and walk several times each day. For the first four weeks, try not to stand or walk for more than one hour at a time. If you do stand or walk for more than one hour, you will not hurt anything, but your knee and leg will likely swell. * As you feel comfortable, you may change from the walker or crutches to a cane and then to independent walking. MEDICATIONS: New Medicine: * You will likely be taking one or more of these medications: 1. Oxycodone - A quick and shorter-acting pain medication. Take one to two tablets every four to six hours to lessen your pain. 2. Aspirin - Thins your blood to lessen the chance of forming a blood clot. * The most common side effects of pain medicine and iron are nausea and constipation. If nausea or constipation is too much of a problem or if you have any questions about your new medicines or doses, call [facility] at [phone]. We will try to help you manage these issues. VERY IMPORTANT TO READ AND REVIEW" Pain: * The immediate post-operative period after knee replacement surgery is often quite painful. * You are given a prescription for pain medicine. You should take it, as directed, when you need it, especially before physical therapy and before going to bed. Pain that interferes with sleep is very common and can last several months. * You will likely need pain medicine for the first four to six weeks. It will not stop all of the pain. The pain will lessen and as you feel better, you may change to milder pain medicine such as Tylenol. * The most common side effects of pain medicine are nausea and constipation, so don't take more than you need. SPECIAL CARE INSTRUCTIONS: TEDs/Elastic Stockings: * The white elastic stockings help limit swelling and prevent blood clots from forming in your legs. The more you wear them, the more they work. * Wear them for six weeks after knee replacement surgery and four weeks after partial knee replacement. Prevention of Infection: * Take antibiotics one hour before any dental cleaning, dental work, urological procedure, gastrointestinal procedure or any invasive surgery in order to prevent your new joint from getting infected. * You may get the antibiotics from the doctor performing the procedure or you may call our office at before and we will call in a prescription to the pharmacy of your choice. Things to Watch For: * Drainage from the incision site that occurs more than one week after your surgery. * Severely increased knee/leg pain or swelling. * Increased redness at the incision site. * Fever above 102 degrees Fahrenheit. * Unusual chest pain or shortness of breath. * Unusual pain or burning with urination. Call [facility] at with any of the above problems or if you have any questions about your medicines or recovery. FOLLOW UP VISIT: Make an appointment to see your doctor for approximately two weeks after surgery for a progress check and staple removal by calling the office at . Current Hospital Diet Patient's current hospital diet: Regular Diet Discharge Diet Recommended Diet: Regular Diet Procedures Procedures Performed: Left Total Knee Arthroplasty Pending Studies Studies pending at discharge: no Medical Emergencies . Who to Call and When: Medical Emergencies: If at any time you feel your situation is an emergency, please call [phone] immediately. . Non-Emergent Contact Non-Emergency issues call your: Surgeon . "Provider Documentation" section prepared by Easton Marcus. . VTE Core Measure Inpt VTE Proph given/why not?: Other Anticoagulation, T.E.D. Stockings, SCD's
[2017-11-27] MEDS: SENNA 8.6 MG TAB PO SCH (21:54)
[2017-11-28] MEDS: OLMESARTAN MEDOXOMIL 40 MG TAB PO SCH (02:03)
[2017-11-28] MEDS: MULTIVITAMIN TAB PO SCH (02:03)
[2017-11-28] MEDS: NEPHROCAPS PO SCH (02:04)
[2017-11-28] MEDS: ATORVASTATIN 20 MG TAB PO SCH (02:04)
[2017-11-28] MEDS: KETOROLAC TROMETHAMINE 30 MG/ML VIAL IV. SCH ×2 (02:04→07:39)
[2017-11-28] MEDS: HYDROCHLOROTHIAZIDE 25 MG TAB PO SCH (02:04)
[2017-11-28] MEDS: ACETAMINOPHEN 500 MG TAB PO SCH (05:48)
[2017-11-28 06:31] VITALS: BP 102/62; PULSE 60; TEMP 36.7; O2SAT 99
[2017-11-28] MEDS: CHECK SCOPOLAMINE PATCH PLACEMENT SCH ×2 (07:29)
[2017-11-28 07:32] VITALS: BP 111/72; PULSE 70
[2017-11-28] MEDS: METOPROLOL TARTRATE 50 MG TAB PO SCH (07:36)
[2017-11-28] MEDS: FERROUS GLUCONATE 324 MG TAB PO SCH (07:36)
[2017-11-28] MEDS: PANTOprazole SOD 40 MG TAB PO SCH (07:36)
[2017-11-28] MEDS: TAPENTADOL ER 50 MG TABCR PO SCH (07:38)
[2017-11-28] MEDS: OXYCODONE HCL IR 5 MG TAB (IMMEDIATE RELEASE) PO PRN (07:39)
--- NOTE | 2017-11-28 07:39 | PROGRESS NOTE ---
DATE: 11/28/2017 SUBJECTIVE: A 56-year-old gentleman postop day 2 from left knee replacement. He is doing pretty well. A little bit more pain this morning. No chest pain or shortness of breath. Not feeling dizzy or lightheaded. OBJECTIVE: VITAL SIGNS: Temperature 36.7. Vital signs stable. PHYSICAL EXAMINATION: GENERAL: Reveals a healthy, pleasant middle-aged male. He is sitting up at his bedside and about to begin breakfast. Looks reasonably comfortable. EXTREMITIES: Examination of the left leg reveals the dressing to be clean, dry and intact. Some fairly mild swelling. Calf is soft and supple. He is neurologically intact. ASSESSMENT: A 56-year-old gentleman postop day 2 from left knee replacement, doing pretty well. Pain seems to be reasonably well controlled. He is neurologically intact. PLAN: 1. DVT prophylaxis including thigh-high TEDs, SCDs, and aspirin twice a day. 2. PT/OT. Weight bear as tolerated. Left total knee protocol. 3. Pain control, doing pretty well with current pain regimen. 4. Disposition: Plan to discharge to home with some home health once adequately recovered.
[2017-11-28] MEDS: DOCUSATE SODIUM 100 MG CAP PO SCH (08:00)
[2017-11-28] MEDS: ASPIRIN 325 MG ECTAB PO SCH (08:00)
[2017-11-28 08:35] VITALS: BP 111/72; PULSE 70; TEMP 36.7; O2SAT 99
== END 2017-11-28 11:29 | disposition home health service (06) | DRG 470 ==
LOC: C.ACU 10:12 → C.3E 15:23 → ENRESERV 15:57
PROVIDERS: ADMIT Orthopaedic Surgery Sports Medicine; ATTEND Orthopaedic Surgery Sports Medicine
PROC: 0SRD0J9 Replacement of Left Knee Joint with Synthetic Substitute, Cemented, Open Approach (ICD-10-PCS; principal; 2017-11-26 12:45)
DX: M17.12 Unilateral primary osteoarthritis, left knee (principal); Z68.41 Body mass index [BMI] 40.0-44.9, adult; I10 Essential (primary) hypertension; G47.30 Sleep apnea, unspecified; E66.9 Obesity, unspecified; Z79.899 Other long term (current) drug therapy; Z79.82 Long term (current) use of aspirin; Z79.1 Long term (current) use of non-steroidal anti-inflammatories (NSAID); Z87.81 Personal history of (healed) traumatic fracture

== ENCOUNTER → 2018-01-27 | Outpatient (CLI) | payer BC ==
[~2018-01-27] MED LIST changes: +ACET-24 PO; -ACETAMINOPHEN 500 MG TAB PO SCH; -ASPCH81X PO; +ASPEC325 PO; -BUPIVACAINE 0.25% 30 ML VIAL ONE; -BUPIVACAINE 0.5 % 5 MG/1 ML PF 10ML VIAL ONE; -BUPIVACAINE LIPOSOME 266 MG, BUPIVACAINE/EPINEPHRINE INJ 50 ML, SODIUM CHLORIDE 0.9% PF... INFIL SCH; -CEFAZOLIN 2000MG IV PUSH 15 ML IV SCH; -DEXAMETHASONE SOD INJ 4 MG/ML VIAL ONE; -EpINEphrine INJ 1MG/ML AMP 1 MG/ML AMP ONE; -FAMOTIDINE 20 MG TAB PO SCH; -FENTANYL CITRATE INJ 50 MCG/1 ML 2 ML VIAL ONE; -GABAPENTIN 300 MG CAP PO SCH; -LACTATED RINGER'S 1000ML 1,000 ML IV SCH; -LACTATED RINGER'S 1000ML 500 ML IV SCH; -LACTATED RINGER'S 1000ML IV SCH; -METOCLOPRAMIDE HCL 10 MG TAB PO SCH; -MIDAZOLAM HCL 1 MG/ML 2ML VIAL ONE; +RXC5 PO; -SCOPOLAMINE 1.5 MG TDSY TD SCH; -TRANEXAMIC ACID INJ 1,000 MG in SYRINGE 0 ML IV SCH
[2018-01-27 12:31] LABS: BASO % 0.5 %; BASO ABS # 0.03 K/uL (0-0.2); EOS ABS # 0.25 K/uL (0-0.5); HEMATOCRIT 43.1 % (42-52); HEMOGLOBIN 14.3 g/dL (14.0-18.0); IG# 0.01 K/uL (0.00-0.02); LYMPH % 27.2 %; MEAN CELL VOLUME 91.7 fL (80-100); MEAN CORPUSCULAR HEMOGLOBIN 30.4 pg (25-34); MEAN CORPUSCULAR HGB CONC 33.2 g/dl (32-36); MEAN PLATELET VOLUME 10.5 fL (7.4-10.4); MONO % 9.3 %; MONO ABS # 0.58 K/uL (0.11-0.59); NEUT % 58.8 %; NEUT ABS # 3.67 K/uL (1.4-6.5); PLATELET COUNT 220 K/uL (130-400); RED CELL DISTRIBUTION WIDTH CV 13.5 % (11.5-14.5); RED CELL DISTRIBUTION WIDTH SD 45.5 fL (36.4-46.3); WHITE BLOOD COUNT 6.24 K/uL (4.8-10.8)
[2018-01-27 12:56] LABS: HEMOGLOBIN A1C 5.3 % (4.5-5.6)
[2018-01-27 12:57] LABS: ALBUMIN 3.9 gm/dl (3.4-5.0); ALT/SGPT 28 U/L (12-78); BLOOD UREA NITROGEN 24 mg/dl (7-18); CALCIUM 9.3 mg/dl (8.5-10.1); CARBON DIOXIDE 30 mmol/L (21-32); CHOLESTEROL 162 mg/dl (0-200); CREATININE 0.96 mg/dl (0.60-1.40); GLUCOSE 107 mg/dl (70-99); POTASSIUM 4.4 mmol/L (3.5-5.1); SODIUM 137 mmol/L (136-145)
[2018-01-27 13:07] LABS: ALKALINE PHOSPHATASE 47 U/L (45-117); AST/SGOT 15 U/L (15-37); LDL CHOLESTEROL CALCULATED 95 mg/dl
== END | disposition home or self-care (01) ==
LOC: C.LABBFT 08:27
PROVIDERS: ATTEND Internal Medicine
DX: I10 Essential (primary) hypertension (principal); E78.5 Hyperlipidemia, unspecified; K76.0 Fatty (change of) liver, not elsewhere classified; Z12.5 Encounter for screening for malignant neoplasm of prostate; I45.10 Unspecified right bundle-branch block

== ENCOUNTER → 2018-05-22 | Outpatient (CLI) | payer BC ==
[~2018-05-22] VITALS: Ht 165.1 cm; Wt 104.4 kg
[2018-05-22 09:42] VITALS: BP 110/75; PULSE 61; Ht 165.1 cm; Wt 104.4 kg
== END | disposition home or self-care (01) ==
LOC: C.NEUR 08:34
PROVIDERS: ATTEND Internal Medicine Pulmonary Disease
DX: G47.33 Obstructive sleep apnea (adult) (pediatric) (principal)

== ENCOUNTER 2023-08-27 11:12 | Observation (INO) ==
--- NOTE | 2023-08-07 11:43 | PAT Medication Instructions ---
Medication Instructions Date of Service August 07, 2023 Home Medications Medication Instructions Recorded CPAP Supplies See Rx Instructions .Route 01/08/22 .COMPLEX #1 ea famotidine 20 mg tablet 20 mg PO BID #180 tabs 08/03/22 atorvastatin 40 mg tablet 40 mg PO HS #90 tabs 09/10/22 metoprolol tartrate 50 mg tablet 50 mg PO BID #180 tabs 12/20/22 diclofenac sodium 75 mg See Rx Instructions .Route 02/25/23 tablet,delayed release .COMPLEX #180 tabs amoxicillin 500 mg tablet See Rx Instructions .Route 07/18/23 .COMPLEX #4 tabs tramadol 50 mg tablet See Rx Instructions PO Q6H PRN 08/05/23 pain #120 tabs multivitamin 1 tab PO HS cinnamon bark 500 mg capsule 1,000 mg PO HS aspirin 81 mg tablet,delayed release (Aspir-) 81 mg PO HS vitamin E acetate 1 mg PO HS zinc 50 mg tablet 50 mg PO HS acetaminophen 500 mg tablet 500 mg PO Q6H PRN Pain famotidine 20 mg tablet 20 mg PO BID atorvastatin 40 mg tablet 40 mg PO HS metoprolol tartrate 50 mg tablet 50 mg PO BID diclofenac sodium 75 mg tablet,delayed release See Rx Instructions .Route .COMPLEX amoxicillin 500 mg tablet See Rx Instructions .Route .COMPLEX Ivermectin Gel 1 dose PO HS cholecalciferol (vitamin D3) 125 mcg (5,000 unit) capsule 125 mcg PO HS losartan 100 mg-hydrochlorothiazide 25 mg tablet 1 tab PO PM melatonin 3 mg tablet 6 mg PO HS tramadol 50 mg tablet See Rx Instructions PO Q6H PRN pain vitamin B complex 1 tab PO HS Continue as directed amoxicillin 500 mg tablet See Rx Instructions .Route .COMPLEX (prior to procedure) ASK your surgeon for instructions diclofenac sodium 75 mg tablet,delayed release See Rx Instructions .Route .COMPLEX STOP taking 2 weeks before surgery (or as soon as possible if surgery is within 2 weeks) cinnamon bark 500 mg capsule 1,000 mg PO HS vitamin E acetate 1 mg PO HS STOP taking 24 hours before surgery Ivermectin Gel 1 dose PO HS Take morning of surgery With a small sip of water, OTHERWISE NOTHING TO EAT OR DRINK AFTER MIDNIGHT: acetaminophen 500 mg tablet 500 mg PO Q6H PRN Pain (if needed) famotidine 20 mg tablet 20 mg PO BID metoprolol tartrate 50 mg tablet 50 mg PO BID tramadol 50 mg tablet See Rx Instructions PO Q6H PRN pain (if needed) Take evening before surgery multivitamin 1 tab PO HS aspirin 81 mg tablet,delayed release (Aspir-) 81 mg PO HS (continue as normal unless told otherwise by surgeon) zinc 50 mg tablet 50 mg PO HS acetaminophen 500 mg tablet 500 mg PO Q6H PRN Pain (if needed) famotidine 20 mg tablet 20 mg PO BID atorvastatin 40 mg tablet 40 mg PO HS metoprolol tartrate 50 mg tablet 50 mg PO BID cholecalciferol (vitamin D3) 125 mcg (5,000 unit) capsule 125 mcg PO HS losartan 100 mg-hydrochlorothiazide 25 mg tablet 1 tab PO PM melatonin 3 mg tablet 6 mg PO HS tramadol 50 mg tablet See Rx Instructions PO Q6H PRN pain (if needed) vitamin B complex 1 tab PO HS Other Notes If you have any questions please call us at [phone] or [phone] or or [phone]
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
[~2023-08-27 11:12] MED LIST changes: -ACET-24 PO; +ACETAMINOPHEN 500 MG TAB PO SCH; -ALBU18002 INH; -ASPEC325 PO; -B-CO1CAP17 PO; -BNC/4025 PO; +BUPIVACAINE 0.5 % 5 MG/1 ML PF 10ML VIAL ONE; -CINN1CAP2 PO; +CeleBREX 200 MG CAP PO SCH; -DICL-201 PO; +FAMOTIDINE 20 MG TAB PO SCH; -LPR50X PO; -LPT20 PO; +LR 15ML/HR IV SCH; +LR 60ML/HR IV SCH; +METOCLOPRAMIDE HCL 10 MG TABLET PO SCH; -MULT-506 PO; -NAPR1TAB9 PO; -RXC5 PO; +Scopolamine 1 MG TDSY TD SCH; -TRAM-10 PO; +TRANEXAMIC ACID 1,000 MG **IV Intra-op IV SCH; +TRANEXAMIC ACID 1,000 MG **IV Pre-op IV SCH; +ceFAZolin 2000MG 2,000 MG/15 ML SYR IV SCH; +dexAMETHasone**PF** 10 MG/ML VIAL IV SCH
--- NOTE | 2023-08-27 11:15 | History & Physical Bridge Note ---
Date of Service August 27, 2023 History & Physical Bridge Note I have examined the patient, reviewed the History & Physical and in the interval since the performance of the History & Physical I have noted the following changes of clinical significance: no changes noted
[2023-08-27] MEDS ORDERED: MoRPHine SULFATE PF 1 MG/ML 10 ML AMP/VIAL ONE (11:40)
[2023-08-27] MEDS ORDERED: MIDAZOLAM HCL 1 MG/ML 2ML VIAL ONE (11:40)
[2023-08-27] MEDS ORDERED: PROPOFOL IV EMULSION 10 MG/ML 20 ML VIAL IV ONE (11:40)
[2023-08-27] MEDS ORDERED: ONDANSETRON INJ 2 MG/ML 2 ML VIAL IV PRN ×2 (12:38→16:15)
[2023-08-27] MEDS ORDERED: ePHEDrine sulfate 50 MG/ML AMP IV PRN ×2 (12:38→21:29)
[2023-08-27] MEDS ORDERED: ATROPINE SULFATE 0.1 MG/ML 10ML SYR IV PRN (12:38)
[2023-08-27] MEDS ORDERED: fentaNYL citrate PF 100 MCG/2 ML VIAL IV PRN (12:38)
[2023-08-27] MEDS ORDERED: BUPIVACAINE/EPINEPHRINE 0.5% MPF 1:200,000 30 ML VIAL ONE (13:11)
[2023-08-27] MEDS ORDERED: ePHEDrine sulfate 50 MG/5 ML SYR ONE (13:40)
[2023-08-27] MEDS ORDERED: PHENYLEPHRINE 100MCG/ML 5ML SYR ONE (13:40)
--- NOTE | 2023-08-27 15:12 | Operative Report ---
PG Post Operative Report Pre & Post Diagnosis Operation Date: 08/27/23 12:30 Pre-Op Diagnosis: Right Hip Degenerative Joint Disease Post-Op Diagnosis: Right Hip Degenerative Joint Disease I identified the patient and participated in the time-out.: Yes Procedure Operation Date: 08/27/23 12:30 Actual Procedures p Right Total Hip Arthroplasty, Uncemented(Right) - Easton Marcus MD Surgeon Easton Marcus MD Car Dealer Edwin Tolliver PA-C Estimated Blood Loss 200 Findings Consistent with Post-Op Diagnosis Operative findings revealed good advanced right hip DJD. It was inflammatory in nature. He had crumbling of the femoral head with extensive degenerative material in his acetabulum. He had very hypertrophic labrum. Flattening of the femoral head. Specimens Right femoral head sent for pathology Anesthesia Type Spinal MAC Complications none Disposition Accompanied Patient To Recovery: No Indications Patient is a 62-year-old gentleman who has had a several year history of increasing right hip pain discomfort is gotten markedly worse over the past 6 months. Failed all conservative measures. X-rays showed marked progression of his hip arthritis. He elected proceed with total hip arthroplasty. Description of Procedure Operative implants consist of: 1 Biomet G7 size 52 mm acetabular shell. 2. 6.5 cancellous acetabular screws 1 at 35 mm in length and 1 of 30 mm length. 3. Comerio hole eliminator. 4. Highly cross-linked polyethylene liner with a 52 mm outer diameter and 36 mm inner diameter. 5. DePuy Karaya size 10 KLA femoral stem. 6. +5/36 mm ceramic articular ball. The patient was taken to the operating, identified, and placed on the operating table supine position. All contractors were appropriately padded. IV antibiotics were by anesthesia team. A spinal anesthetic had been implemented in the holding area. The patient was then placed in the left lateral decubitus position. An axillary roll was placed. A Stulberg hip positioner was used for positioning. The right hip and leg were then prepped and draped in usual sterile fashion. A posterolateral approach to the right hip was then performed to a curvilinear incision centered over the greater trochanter. Sharp dissection was carried through subcutaneous tissue down to the IT band gluteal fascia. The IT band gluteal fascia incised longitudinally in line with skin incision. The underlying greater bursa was excised. The piriformis and external rotators along with the posterior hip joint capsule was then released from the posterior aspect of the hip as a single layer. Great care was taken throughout the procedure protect the sciatic nerve at all times. The hip was internally rotated and dislocated. A femoral neck osteotomy cut was made with a Final Cut about a centimeter above the lesser trochanter. Femoral head was removed and sent for pathology. The femur was retracted anteriorly. Attention drawn the acetabulum. The acetabular labrum was very hypertrophied and was excised. There was a lot of debris in the acetabulum itself which was removed. I then reamed beginning with a size 43 and progressing up to 51. I reamed a little bit with a 52 reamer and then placed a 52 mm Biomet G7 acetabular shell in about 40 degrees lateral opening and 20 degrees of anteversion. It was fixed with two 6.5 cancellous acetabular screws. A trial liner was placed. Attention drawn the femur. The proximal femur was then with a MiNeeds cutter followed by canal finder. I then broached beginning with size 8 and progressing up to 10. We got excellent fit of the tendon. I trialed the hip. The +5 articular ball was fully stable. The soft tissue tension was still a little bit lax but it was extremely stable in all positions. I elect to place this implant. I do not want to lengthen him too much as it is other leg was a little bit short from the previous femur fracture. We elect to place these implants. Trial implants were removed. An apex eliminator was placed. Highly cross- linked polyethylene liner was placed. A size 10 KLA femoral stem was impacted in position. A +5/36 mm ceramic articular ball was placed. Hip was located and once again found to be stable. Attention drawn toward closing. Wound was irrigated coconuts pulsatile lavage solution. I did inject locally with 60 cc of half percent Marcaine with epinephrine. The posterior capsule and external rotators were then repaired through drill holes in the posterior trochanter with #2 Tycron suture. The IT band gluteal fascia then closed in 1 PDS suture in a running fashion subcutaneous tissues were closed with 2 layers with a deep layer #2 Vicryl in the subcutaneous tissues with 2 Dexon suture in a buried interrupted fashion. Skin was closed skin roberta. Leg was then cleaned and dried and a Prevena VAC dressing was applied due to the very thick soft tissue envelope. The patient was then transferred to the recovery room in stable condition. Patient tolerated the procedure well and there were no complications. Edwin Tolliver, my physician assistant store manager trainee, was present for the entire procedure. His assistance was essential and required for appropriate patient positioning, prepping and draping, surgical exposure, performing the technical details of the operation, placement the implants, closure of the wound, and placement of the sterile bandage. I attest to the content of the Intraoperative Record and any orders documented therein. Any exceptions are noted below.
[2023-08-27] MEDS ORDERED: ALUMINUM/MAGNESIUM SUSP 30 ML UDC PO PRN (16:15)
[2023-08-27] MEDS ORDERED: METOCLOPRAMIDE HCL INJ 5 MG/ML 2 ML VIAL IV PRN (16:15)
[2023-08-27] MEDS ORDERED: NON-FORMULARY MEDICATION (Amoxicillin 500 mg tablet) SCH (16:15)
[2023-08-27] MEDS ORDERED: NALOXONE HCL 0.4 MG/1 ML VIAL/CARP IV PRN ×2 (16:15→21:29)
[2023-08-27] MEDS ORDERED: CARBOHYDRATES FOR HYPOGLYCEMIA PO PRN (16:15)
[2023-08-27] MEDS ORDERED: HYDROmorphone INJ 0.5 MG/0.5 ML SYR IV PRN (16:15)
[2023-08-27] MEDS ORDERED: diphenhydrAMINE Capsule 25 MG CAP PO PRN (16:15)
[2023-08-27] MEDS ORDERED: DEXTROSE 50% 50 ML SYRINGE IV PRN (16:15)
[2023-08-27] MEDS ORDERED: GLUCOSE 10 TAB/TUBE PO PRN (16:15)
[2023-08-27] MEDS ORDERED: GLUCAGON FOR INJ 1 MG VIAL SQ PRN (16:15)
[2023-08-27] MEDS ORDERED: MAGNESIUM HYDROXIDE SUSP 30 ML UDC PO PRN (16:15)
[2023-08-27] MEDS ORDERED: GLUCOSE 40% GEL 15 GM TUBE PO PRN (16:15)
[2023-08-27] MEDS ORDERED: bisacodyL 10 MG SUPP PR PRN (16:15)
[2023-08-27] MEDS ORDERED: NON-FORMULARY MEDICATION (Cpap Supplies misc) SCH (16:15)
[2023-08-27] MEDS ORDERED: PHARMACY GLYCEMIC MGMT CONSULT PRN (16:15)
[2023-08-27] MEDS ORDERED: traMADol HCL 50 MG TABLET PO PRN ×2 (16:15)
--- NOTE | 2023-08-27 16:23 | Anesthesiology Progress Note ---
Date of Service August 27, 2023 Anesthesia Post Procedure Vital Signs Vital Signs: Temp Pulse Pulse Resp BP BP Pulse Ox 08/27/23 16:17 36.4 C L 80 16 106/69 99 08/27/23 16:05 79 18 115/69 98 08/27/23 15:55 36.3 C L 70 14 102/54 L 98 08/27/23 15:45 74 20 107/58 L 96 08/27/23 15:35 72 16 106/62 99 08/27/23 15:25 67 18 94/51 L 96 08/27/23 15:15 74 16 101/55 L 90 08/27/23 15:08 36.0 C L 79 16 103/64 95 08/27/23 11:36 36.7 C 61 20 133/87 95 O2 Del Method O2 Flow Rate 08/27/23 16:17 Room Air 08/27/23 16:05 Nasal Cannula 2 08/27/23 15:55 Nasal Cannula 2 08/27/23 15:45 Nasal Cannula 2 08/27/23 15:35 Nasal Cannula 2 08/27/23 15:25 Nasal Cannula 2 08/27/23 15:15 Room Air 08/27/23 15:08 Room Air 08/27/23 11:36 Room Air Pain Intensity Right Hip: Pain Intensity: 2 Transfer of Care Handoff Completed per policy Notes Mental Status: alert / awake / arousable Patient Amnestic to Procedure: Yes Nausea / Vomiting: adequately controlled Pain: adequately controlled Airway Patency, RR, SpO2: stable & adequate BP & HR: stable & adequate Hydration State: stable & adequate Neuraxial Anesthesia: was administered and sensory block is resolving Anesthetic Complications: no major complications apparent and Pt Satisfied with anesthetic care
[2023-08-27] MEDS: Scopolamine CHECK PATCH PLACEMENT SCH ×2 (16:28→23:10)
--- NOTE | 2023-08-27 16:28 | XRay Report ---
SINGLE VIEW PELVIS; SINGLE VIEW RIGHT HIP CLINICAL HISTORY: Postoperative examination. FINDINGS: An AP portable view of the hips and pelvis with a crosstable lateral portable view of the r ight hip are compared to study dated 07/22/2023. A bipolar right hip arthroplasty is in near-anatomic alignment. At least 2 cortical lag screws transfix the acetabular cup. No acute fracture is identifie d. There are expected postoperative changes overlying the right hip including skin clips, subcutaneou s gas, and soft tissue swelling. There is chronic posttraumatic deformity of the left femur with an i ntramedullary nail in place. Mild arthritic change is seen in the left hip. Lumbosacral spondylosis i s partially visualized. IMPRESSION: Expected postoperative findings status post right hip arthroplasty. No acute fracture is seen. ACT 112: Negative or not required by law. Electronically signed by: Sea Terry M.D. 08/27/2023 4:26 PM
[2023-08-27] MEDS: SODIUM CHLORIDE 0.9% 1,000 ML IV SCH (16:32)
[2023-08-27] MEDS: INSULIN ASPART PER UNIT CHARGE SC SCH ×2 (17:09→21:02)
[2023-08-27] MEDS: ASCORBIC ACID 500 MG TAB PO SCH (17:38)
[2023-08-27] MEDS: KETOROLAC 30 MG/ML VIAL IV SCH ×2 (17:38→23:10)
[2023-08-27] MEDS: ASPIRIN 81 MG ECTAB PO SCH (20:04)
[2023-08-27] MEDS: DOCUSATE SODIUM 100 MG CAP PO SCH (20:05)
[2023-08-27] MEDS: FAMOTIDINE 20 MG TAB PO SCH (20:06)
[2023-08-27] MEDS: METOPROLOL TARTRATE 50 MG TAB PO SCH (20:06)
[2023-08-27] MEDS ORDERED: MELATONIN 3 MG TAB PO SCH (21:00)
[2023-08-27] MEDS ORDERED: NON-FORMULARY MEDICATION (Multivitamin tablet) PO SCH (21:00)
[2023-08-27] MEDS ORDERED: LOSARTAN/HCTZ 50/12.5MG TAB PO SCH (21:00)
[2023-08-27] MEDS ORDERED: ACETAMINOPHEN 500 MG TAB PO SCH (21:00)
[2023-08-27] MEDS ORDERED: SENNA 8.6 MG TAB PO SCH ×2 (21:00)
[2023-08-27] MEDS ORDERED: CHOLECALCIFEROL 5,000 UNITS 125 MCG TAB PO SCH (21:00)
[2023-08-27] MEDS ORDERED: VITAMIN E PO SCH (21:00)
[2023-08-27] MEDS ORDERED: VITAMIN B COMPLEX TAB PO SCH (21:00)
[2023-08-27] MEDS ORDERED: IVERMECTIN PO SCH (21:00)
[2023-08-27] MEDS ORDERED: ATORVASTATIN 40 MG TAB PO SCH (21:00)
[2023-08-27] MEDS: ceFAZolin 2000MG 2,000 MG/15 ML SYR IV SCH (21:03)
[2023-08-27] MEDS: ACETAMINOPHEN 500 MG TAB PO SCH (21:04)
[2023-08-27] MEDS ORDERED: NALOXONE HCL 0.08 MG in SYRINGE 1.8 ML IV PRN (21:29)
[2023-08-27] MEDS ORDERED: diphenhydrAMINE 50 MG/ML VIAL IV PRN (21:29)
[2023-08-27] MEDS ORDERED: NALOXONE HCL 1 MG in SODIUM CHLORIDE 0.9% 1,000 ML IV PRN (21:29)
[2023-08-27] MEDS ORDERED: NALBUPHINE HCL 5 MG in SYRINGE 0 ML IV PRN (21:29)
[2023-08-27] MEDS ORDERED: LACTATED RINGER'S 500 ML IV PRN (21:29)
[2023-08-27] MEDS ORDERED: MoRPHine SULFATE PF 1 MG/ML 10 ML AMP/VIAL INT SPINAL ONE (21:29)
[2023-08-27] MEDS ORDERED: SODIUM CHLORIDE 0.9% 1,000 ML IV SCH (21:30)
[2023-08-27] MEDS ORDERED: DC INTRASPINAL MORPHINE SCH (21:30)
[2023-08-27] MEDS ORDERED: NO NARCOTICS OR SEDATIVES SCH (21:30)
[2023-08-27] MEDS ORDERED: TRANEXAMIC ACID / 0.7% NACL 1,000 MG/100 ML BAG IV SCH (22:00)
[2023-08-28] MEDS: SODIUM CHLORIDE 0.9% 1,000 ML IV SCH (02:36)
[2023-08-28] MEDS: ceFAZolin 2000MG 2,000 MG/15 ML SYR IV SCH (05:28)
[2023-08-28] MEDS: KETOROLAC 30 MG/ML VIAL IV SCH ×2 (05:28→11:00)
[2023-08-28] MEDS: ACETAMINOPHEN 500 MG TAB PO SCH (05:29)
[2023-08-28] MEDS ORDERED: diphenhydrAMINE Capsule 25 MG CAP PO PRN ×2 (06:03→15:30)
[2023-08-28] MEDS ORDERED: traMADol HCL 50 MG TABLET PO PRN ×2 (06:03→15:30)
[2023-08-28] MEDS ORDERED: HYDROmorphone INJ 0.5 MG/0.5 ML SYR IV PRN ×2 (06:03→15:30)
[2023-08-28 07:10] LABS: Basophils # (auto) 0.01 K/uL (0.00-0.20); Basophils % (auto) 0.1 %; Hematocrit (blood only) 35.6 % (42.0-52.0); Immature Granulocytes # (auto) 0.05 K/uL (0.01-0.20); Immature Granulocytes % (auto) 0.5 %; Lymphocytes # (auto) 0.61 K/uL (1.20-3.40); Lymphocytes % (auto) 6.5 %; Mean Corpuscular Hemoglobin 30.8 pg (25.0-34.0); Mean Corpuscular Hgb Conc 33.7 g/dL (32.0-36.0); Mean Corpuscular Volume 91.5 fL (80.0-100.0); Mean Platelet Volume 10.1 fL (9.4-12.4); Monocytes # (auto) 0.81 K/uL (0.11-0.59); Monocytes % (auto) 8.7 %; Neutrophils # (auto) 7.85 K/uL (1.40-6.50); Neutrophils % (auto) 84.2 %; Platelet Count 211 K/uL (130-400); RDW Coefficient of Variation 12.3 % (11.5-14.5); RDW Standard Deviation 41.4 fL (36.4-46.3); Red Blood Count 3.89 M/uL (4.70-6.10); White Blood Count 9.33 K/ul (4.8-10.8)
[2023-08-28 07:41] LABS: Calcium 8.6 mg/dl (8.6-10.3); Potassium 3.8 mmol/L (3.5-5.1)
[2023-08-28 07:47] LABS: BUN Creatinine Ratio 31.7 (10-20); Creatinine Clr Calc Pharmacy 125.6 ml/min; Est GFR (African American) 123.2 ml/min; Est GFR (Non-African American) 106.3 ml/min
[2023-08-28] MEDS ORDERED: dexAMETHasone 4 MG TAB PO SCH (08:00)
[2023-08-28] MEDS: INSULIN ASPART PER UNIT CHARGE SC SCH ×2 (08:49→12:38)
[2023-08-28] MEDS: FAMOTIDINE 20 MG TAB PO SCH (08:51)
[2023-08-28] MEDS: ASCORBIC ACID 500 MG TAB PO SCH (08:51)
[2023-08-28] MEDS: DOCUSATE SODIUM 100 MG CAP PO SCH (08:52)
[2023-08-28] MEDS: ASPIRIN 81 MG ECTAB PO SCH (08:52)
[2023-08-28] MEDS: Scopolamine CHECK PATCH PLACEMENT SCH (08:52)
[2023-08-28] MEDS: METOPROLOL TARTRATE 50 MG TAB PO SCH (08:59)
[2023-08-28] MEDS ORDERED: MULTIVITAMIN TAB PO SCH (09:00)
[2023-08-28] MEDS ORDERED: TAMSULOSIN HCL 0.4 MG CAP PO SCH (09:00)
--- NOTE | 2023-08-28 10:57 | Pharmacy Report ---
Pharmacy Glycemic Short Note 2 - Date of Service August 28, 2023 - Glycemic Short BSG Results (Last 24 hours): 08/27/23 08/27/23 08/27/23 11:33 16:37 20:57 Glucose POC Glucose 102 H 159 H 142 H 08/28/23 08/28/23 06:24 07:45 Glucose 116 H POC Glucose 103 H OUTPATIENT ANTIDIABETIC REGIMEN: * N/A HbA1c = 5.3% ASSESSMENT: * 62 y/o M admitted for R total hip arthroplasty. Based on reported A1c, patient is currently not a diabetic and was not on any anti-diabetic meds at home. * IV Dexamethasone 10 mg was given in OR x1 dose yesterday. * Novolog started at dinner based on stress of 2. This has covered steroid induced hyperglycemia. Basal insulin was not ordered. * Fasting BSG today is 103 mg/dl. * PO Dex 8 mg ordered x1 today AM. Will hold off on adding basal insulin again and rely on Novolog coverage for hyperglycemia. PLAN FOR INPATIENT GLYCEMIC CONTROL * Basal insulin * none * Bolus insulin * NovoLog per scale ACHS or Q6hrs while NPO * Goal Range: Low 110 mg/dL - High 140 mg/dL * Correction Factor: 25 mg/dL/unit * Nutritional / Prandial insulin per carb ratio of 1 unit per 8 grams CHO consumed
--- NOTE | 2023-08-28 12:40 | Surgery Progress Note ---
Date of Service August 28, 2023 Assessment & Plan (1) Status post total hip replacement, right: Plan: 62-year-old gentleman postop day 1 from a right total hip replacement. He is doing well. Really not have any pain. Hips located. He is neurologically intact. Plan: 1. DVT prophylaxis including thigh-high teds, SCDs, aspirin twice a day. 2. PT OT. Weight-bear as tolerated. Right total hip protocol. 3. Pain control doing well with current pain regimen. Really not have much pain to speak. 4. Disposition plan is to discharge to home if he does okay in therapy today. We will see how that goes. Admission and Anticipated Discharge Date Admission Date: August 27, 2023 Subjective 62-year-old gentleman postop day 1 from a right total hip replacement. He is doing well. Really has not had any pain to speak of. No chest pain or shortness of breath. Not feeling dizzy or lightheaded. Physical Exam Physical Exam: Physical examination was a pleasant middle-age male. He is lying in bed looks pretty comfortable. Examination of the right hip and leg reveals a Prevena VAC dressing to be in place. Leg lengths are equal. Thigh is soft and supple. He can dorsiflex and plantarflex his foot appropriately. He is neurologically intact. Respiratory: normal respiratory effort, lungs clear to auscultation Cardiovascular: RRR, no murmur, no edema Gastrointestinal (Abdomen): normal bowel sounds, soft, nontender, no hepatosplenomegaly Results & Data Vital Signs (Past 12 Hours) Vital Signs Temp Pulse Resp BP Pulse Ox O2 Del Method 08/28/23 10:31 16 98 08/28/23 08:57 70 108/65 08/28/23 08:48 16 94 08/28/23 07:17 16 96 08/28/23 07:11 36.5 C 57 L 18 91/54 L 99 Room Air 08/28/23 05:27 16 95 08/28/23 04:57 36.9 C 90 18 96/58 L 96 Room Air 08/28/23 04:45 16 96 08/28/23 03:25 14 96 08/28/23 02:38 16 95 08/28/23 01:30 16 96 Laboratory Results Hemoglobin is 12.0. Hematocrit 35.6. Electrolytes are stable. PG Care Time/CCT Total # of Minutes Spent Total Time Spent with Patient: Total time spent is greater than 50% in coordination of care (as documented) at patient's floor/unit and/or counseling patient: Coding Level of Care Code None Diagnoses Status post total hip replacement, right Z96.641
--- NOTE | 2023-08-28 14:43 | Surgery Progress Note ---
Date of Service August 28, 2023 Assessment & Plan (1) Status post total hip replacement, right: Plan: 62 gentleman postop day 1 from a right hip replacement doing well. Pain is controlled. Dislocated. He is neurologically intact. Plan: 1. DVT prophylaxis including thigh-high teds, SCDs, aspirin twice a day. 2. PT OT. Weight-bear as tolerated right. Protocol. 3. Pain control doing okay with current pain regimen. 4. Disposition plan to discharge to home with some home health today if he does good in therapy. Admission and Anticipated Discharge Date Admission Date: August 27, 2023 Subjective 62-year-old gentleman postop day 1 from a right hip replacement. He is doing pretty well. Really has not had as much pain at all to speak of. No chest pain or shortness of breath. Not feeling dizzy or lightheaded. Physical Exam Physical Exam: Physical examination was a pleasant middle-age male. He is sitting up in bed looks pretty comfortable. Examination of the right hip and leg reveals the dressing to be clean dry and intact. Leg lengths are equal. Hips located. He is neurologically intact. Respiratory: normal respiratory effort, lungs clear to auscultation Cardiovascular: RRR, no murmur, no edema Gastrointestinal (Abdomen): normal bowel sounds, soft, nontender, no hepatosplenomegaly Results & Data Vital Signs (Past 12 Hours) Vital Signs Temp Pulse Resp BP Pulse Ox O2 Del Method 08/28/23 10:31 16 98 08/28/23 08:57 70 108/65 08/28/23 08:48 16 94 08/28/23 07:17 16 96 08/28/23 07:11 36.5 C 57 L 18 91/54 L 99 Room Air 08/28/23 05:27 16 95 08/28/23 04:57 36.9 C 90 18 96/58 L 96 Room Air 08/28/23 04:45 16 96 08/28/23 03:25 14 96 Laboratory Results Hemoglobin is 12.0. Hematocrit 35.6. Electrolytes are stable. PG Care Time/CCT Total # of Minutes Spent Total Time Spent with Patient: Total time spent is greater than 50% in coordination of care (as documented) at patient's floor/unit and/or counseling patient: Coding Level of Care Code 25863 Post Operative Follow-Up Diagnoses Status post total hip replacement, right Z96.649
--- NOTE | 2023-08-29 09:37 | Discharge Summary ---
Date of Service August 29, 2023 Discharge Data Procedures Performed Operation Date: 08/27/23 12:30 Actual Procedures p Right Total Hip Arthroplasty, Uncemented(Right) - Easton Marcus MD Hospital Course (1) Status post total hip replacement, right: This is a 62 year old patient admitted on 08/27/23 and underwent total hip arthroplasty. She tolerated the procedure well and there were no complications. Transferred to the PACU post op and later to the orthopedic floor for further care. He was given ancef for antibiotic prophylaxis. He was also given HERI stockings, SCDs, and aspirin for DVT prophylaxis. Hemoglobin, hematocrit, and vital signs were monitored during his hospital stay and remained stable. Did not require any blood transfusions. There were no complications during his hospital stay. By post op day #1 the patient was tolerating a diabetic diet, pain was reasonably controlled with oral pain medicine, and he was participating in physical therapy. On post op day #1 the patient was discharged home and set up with home health care. He was given printed discharge instructions including prescriptions for extra strength tylenol, aspirin, ketorolac, cefadroxil, zofran, senokot, flomax, and tramadol. Continue hip precautions. Continue physical therapy, weight bearing as tolerated. Continue HERI stockings. Follow up approximately 2 weeks post op or sooner if there are problems or concerns. Coding Level of Care Code None Diagnoses Status post total hip replacement, right Z96.641
== END 2023-08-28 13:08 | disposition home health service (06) ==
LOC: ASU 11:12 → 3E 11:12
DX: I45.10 Unspecified right bundle-branch block; Z96.652 Presence of left artificial knee joint; M65.9 Synovitis and tenosynovitis, unspecified; Z01.818 Encounter for other preprocedural examination; Z01.812 Encounter for preprocedural laboratory examination; E11.9 Type 2 diabetes mellitus without complications; G47.33 Obstructive sleep apnea (adult) (pediatric); Z01.810 Encounter for preprocedural cardiovascular examination; K21.9 Gastro-esophageal reflux disease without esophagitis; M87.9 Osteonecrosis, unspecified; J45.909 Unspecified asthma, uncomplicated; Z79.899 Other long term (current) drug therapy; Z79.82 Long term (current) use of aspirin; Z96.612 Presence of left artificial shoulder joint; Z78.9 Other specified health status; I10 Essential (primary) hypertension; M16.11 Unilateral primary osteoarthritis, right hip

== ENCOUNTER 2023-11-10 13:11 | Inpatient (IN) ==
[2023-11-10 13:48] LABS: Basophils # (auto) 0.06 K/uL (0.00-0.20); Basophils % (auto) 0.5 %; Eosinophils # (auto) 0.33 K/uL (0.00-0.50); Eosinophils % (auto) 2.7 %; Hematocrit (blood only) 36.5 % (42.0-52.0); Hemoglobin 11.9 g/dl (14.0-18.0); Immature Granulocytes # (auto) 0.31 K/uL (0.01-0.20); Immature Granulocytes % (auto) 2.5 %; Lymphocytes # (auto) 0.79 K/uL (1.20-3.40); Lymphocytes % (auto) 6.5 %; Mean Corpuscular Hemoglobin 29.6 pg (25.0-34.0); Mean Corpuscular Hgb Conc 32.6 g/dL (32.0-36.0); Mean Corpuscular Volume 90.8 fL (80.0-100.0); Mean Platelet Volume 9.2 fL (9.4-12.4); Monocytes # (auto) 0.77 K/uL (0.11-0.59); Monocytes % (auto) 6.3 %; Neutrophils # (auto) 9.92 K/uL (1.40-6.50); Neutrophils % (auto) 81.5 %; Platelet Count 303 K/uL (130-400); RDW Coefficient of Variation 13.3 % (11.5-14.5); RDW Standard Deviation 44.7 fL (36.4-46.3); Red Blood Count 4.02 M/uL (4.70-6.10); White Blood Count 12.18 K/ul (4.8-10.8)
[2023-11-10] MEDS ORDERED: VANCOMYCIN HCL 2,000 MG in SODIUM CHLORIDE 0.9% 500 ML IV ONE (13:58)
[2023-11-10] MEDS ORDERED: VANCOMYCIN CONSULT ACTIVE PRN (13:58)
[2023-11-10] MEDS ORDERED: cefTRIAXone SODIUM 2,000 MG/50 ML BAG IV STA (13:58)
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
[2023-11-10 14:01] LABS: Albumin Level 3.5 gm/dl (3.4-5.0); Bilirubin,Total 0.4 mg/dl (0.2-1.0); Calcium 9.3 mg/dl (8.6-10.3); Potassium 3.4 mmol/L (3.5-5.1)
[2023-11-10 14:07] LABS: Albumin Globulin Ratio 0.9 (0.9-2); BUN Creatinine Ratio 40.8 (10-20); Creatinine Clr Calc Pharmacy 65.5 ml/min; Est GFR (African American) 73.6 ml/min; Est GFR (Non-African American) 63.5 ml/min; Total Protein 7.5 gm/dl (6.0-8.3)
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
--- NOTE | 2023-11-10 15:56 | Ultrasound Report ---
US venous doppler LE RT CLINICAL HISTORY: rle TECHNIQUE: Right lower extremity real-time compression venous ultrasound with Color Doppler imaging. Utilizing real-time ultrasonic imaging multiple real time high-resolution ultrasonic images with comp ression and noncompression maneuvers of the deep venous system in addition to color doppler imaging w ere performed from the common femoral vein through the proximal calf veins. COMPARISON: None available at the time of this dictation. FINDINGS/IMPRESSION: Currently there is normal compressibility of the deep venous system from the common femoral vein thro ugh the proximal calf veins. No superficial venous thrombosis is identified. ACT 112: Negative or not required by law. Electronically signed by: Mu Mancuso M.D. 11/10/2023 3:54 PM
[2023-11-10 16:12] LABS: Magnesium 2.3 mg/dl (1.7-2.4)
[2023-11-10] MEDS ORDERED: ACETAMINOPHEN 325 MG TAB PO STA (16:15)
[2023-11-10] MEDS ORDERED: MoRPHine SULFATE 4 MG/ML 1 ML CARP\\VIAL IV PRN (16:15)
[2023-11-10] MEDS ORDERED: NALOXONE HCL 0.4 MG/1 ML VIAL/CARP IV PRN (16:16)
[2023-11-10] MEDS ORDERED: POTASSIUM CHLORIDE CRTAB 20 MEQ TABCR PO STA (16:17)
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
[2023-11-10 16:35] LABS: C Reactive Protein 34.66 mg/dl (0-0.5)
[2023-11-10] MEDS: PLASMA-LYTE A 1,000 ML IV SCH (16:52)
[2023-11-10] MEDS ORDERED: ALBUTEROL 0.5% NEB SOLN 2.5 MG/0.5 ML VIAL NEB PRN (17:00)
--- NOTE | 2023-11-10 17:04 | XRay Report ---
XR hip RT 2V w pelvis CLINICAL HISTORY: postop wound drainage TECHNIQUE: 2 views of the right hip and single frontal view of the pelvis were obtained. Comparison: Comparison is made to pelvis radiograph 08/27/2023 FINDINGS: There is no evidence of an acute fracture. Total hip arthoplasty hardware is seen without perihardwar e lucency or hardware fracture. Degenerative changes are seen in the spine were visualized. Left hip joint demonstrates mild osteoarthritis. No soft tissue abnormality is seen. IMPRESSION: No acute abnormality. Expected appearance of right hip total arthroplasty. ACT 112: Negative or not required by law. Electronically signed by: Mu Mancuso M.D. 11/10/2023 5:01 PM
--- NOTE | 2023-11-10 18:39 | Ultrasound Report ---
US renal/blad retro comp CLINICAL HISTORY: BHAVESH; please monitor for hydro/obstruction TECHNIQUE: Multiple sonographic real-time images of the kidneys and bladder were obtained. COMPARISON: Comparison is made to abdominal ultrasound 05/04/2013 FINDINGS: Exam is limited by patient positioning. The right kidney measures 11.5 cm in length, and the left kid jessica measures 11.6 cm in length. The right kidney is normal in size, contour, cortical thickness, and echogenicity. No hydronephrosis is identified. 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 The left kidney is normal in size, contour, cortical thickness and echogenicity. No hydronephrosis i s identified. Partial visualization of a possible solid lesion measuring 1.9 x 2.1 x 2.3 cm with inte rnal Doppler flow. The bladder is partially distended. No large intraluminal mass is seen. IMPRESSION: 1. No evidence of hydronephrosis. 2. Questionable solid lesion in the left kidney. Nonemergent follow-up is recommended. ACT 112: Positive. There are findings on this exam that require communication between the performing entity and the patient following Patient Test Result Information Act ([place] Act 112) guidelines. Electronically signed by: Mu Mancuso M.D. 11/10/2023 6:38 PM
--- NOTE | 2023-11-10 18:39 | XRay Report ---
XR chest 1V portable CLINICAL HISTORY: pre-operative clearance eval TECHNIQUE: Single frontal radiograph of the chest was obtained. Comparison: Comparison is made to chest radiograph 08/12/2023 FINDINGS: Left shoulder reverse arthroplasty is seen. Cardiomegaly is noted. The lungs are clear. No evidence o f pleural effusion or pneumothorax. IMPRESSION: No acute chest disease. Cardiomegaly is noted. ACT 112: Negative or not required by law. Electronically signed by: Mu Mancuso M.D. 11/10/2023 6:38 PM
[2023-11-10] MEDS ORDERED: ATORVASTATIN 40 MG TAB PO SCH (21:00)
[2023-11-10] MEDS ORDERED: ASPIRIN 81 MG ECTAB PO SCH (21:00)
[2023-11-10] MEDS: DAPTOmycin 450 MG in SYRINGE 0 ML IV SCH (21:32)
[2023-11-10] MEDS: FAMOTIDINE 20 MG TAB PO SCH (21:33)
[2023-11-10] MEDS: METOPROLOL TARTRATE 50 MG TAB PO SCH (21:33)
[2023-11-10] MEDS: MELATONIN 3 MG TAB PO SCH (21:33)
[2023-11-10 22:29] LABS: Appearance Urine Clear (Clear); Bilirubin Urine Negative (Negative); Blood Urine Negative (Negative); Color Urine Yellow; Glucose Urine UA Negative (Negative); Ketones Urine Negative (Negative); Leukocyte Esterase Urine Negative (Negative); Nitrite Urine Negative (Negative); Protein Urine Negative (Negative); Specific Gravity Urine 1.011 (1.000-1.030); Urobilinogen Urine Negative (Negative); pH Urine 5.5 (4.5-7.5)
[2023-11-11] MEDS: HYDROmorphone INJ 0.5 MG/0.5 ML SYR IV PRN ×4 (01:51→19:19)
[2023-11-11] MEDS: PLASMA-LYTE A 1,000 ML IV SCH (04:56)
--- NOTE | 2023-11-11 07:29 | Hospitalist Progress Note ---
Date of Service November 11, 2023 Assessment & Plan (1) Postoperative complication of skin involving drainage from surgical wound: Plan: -Presented with one week of progressive pain, swelling, erythema at the right hip replacement site with recent opening/drainage of the distal aspect of the incision site Original antoni R VLAD 08/27/23 -Patient noted to have a leukocytosis, elevated ESR, CRP, afebrile Vancomycin and ceftriaxone RLE venous doppler is negative for DVT plan for surgical drainage 11/11/23, await intra operative cultures -Pain control with tylenol and dilaudid (due to BHAVESH) -BL SCD's for DVT PPX - (2) BHAVESH (acute kidney injury): Plan: -Cr 1.2 on admission, baseline is near 0.7 hypovolemic volume status on admission Holding losartan-HCTZ for now with BHAVESH and infection - UA and Renal US no hydronephrosis, questionable solid lesion left kidney recommend follow up imaging -Will start Plasmalyte at 80 mL/hr x 2 bags overnight hypokalemia ordered additional dosing (3) Obstructive sleep apnea of adult: Plan: -HS CPAP ordered (4) GERD (gastroesophageal reflux disease): Plan: -Continue famotidine (5) Hypertension: Plan: -Stable -Holding losartan-HCTZ for now with BHAVESH and infection -Will continue metoprolol Admission and Anticipated Discharge Date Admission Date: November 10, 2023 Subjective pt with pain at the right hip with some minimal drainage for OR today11/11/23 Physical Exam Physical Exam: cardiac exam is regular, no murmurs, no stigmata of endocarditis right hip with some slight wound and mild drainage Results & Data Results & Data Vital Signs (Past 12 Hours) Vital Signs Temp Pulse Pulse Pulse Resp BP Pulse Ox 11/11/23 02:59 98.8 F 82 16 113/67 92 11/10/23 22:38 11/10/23 22:03 71 11/10/23 21:16 98.1 F 79 18 129/79 96 11/10/23 21:07 81 11/10/23 20:16 78 20 O2 Del Method 11/11/23 02:59 Room Air 11/10/23 22:38 Room Air 11/10/23 22:03 11/10/23 21:16 Room Air 11/10/23 21:07 11/10/23 20:16 Room Air Laboratory Results reviewed cbc reviewed chemistry PG Care Time/CCT Total # of Minutes Spent Total Time Spent with Patient: Total time spent is greater than 50% in coordination of care (as documented) at patient's floor/unit and/or counseling patient: Coding Level of Care Code 25364 SUB INP/OBS CARE 2/35MIN Diagnoses Postoperative complication of skin involving drainage from surgical wound L76.82 BHAVESH (acute kidney injury) N17.9 Obstructive sleep apnea of adult G47.33 GERD (gastroesophageal reflux disease) K21.9 Hypertension I10
[2023-11-11 07:33] LABS: Hematocrit (blood only) 32.6 % (42.0-52.0); Mean Corpuscular Hemoglobin 29.3 pg (25.0-34.0); Mean Corpuscular Hgb Conc 33.7 g/dL (32.0-36.0); Mean Corpuscular Volume 86.9 fL (80.0-100.0); Mean Platelet Volume 9.2 fL (9.4-12.4); Platelet Count 314 K/uL (130-400); RDW Coefficient of Variation 13.5 % (11.5-14.5); RDW Standard Deviation 43.1 fL (36.4-46.3); Red Blood Count 3.75 M/uL (4.70-6.10); White Blood Count 9.72 K/ul (4.8-10.8)
[2023-11-11 07:55] LABS: Prothrombin Time 11.2 Seconds (9.0-12.0)
[2023-11-11 07:59] LABS: Albumin Globulin Ratio 0.9 (0.9-2); Albumin Level 3.2 gm/dl (3.4-5.0); BUN Creatinine Ratio 36.2 (10-20); Bilirubin,Total 0.3 mg/dl (0.2-1.0); Calcium 9.1 mg/dl (8.6-10.3); Est GFR (African American) 116.3 ml/min; Est GFR (Non-African American) 100.3 ml/min; Globulin 3.4 gm/dl (2.5-4.0); Potassium 3.3 mmol/L (3.5-5.1); Total Protein 6.6 gm/dl (6.0-8.3)
[2023-11-11] MEDS: ACETAMINOPHEN 325 MG TAB PO PRN ×2 (07:59→21:52)
[2023-11-11] MEDS: METOPROLOL TARTRATE 50 MG TAB PO SCH ×2 (08:07→21:53)
[2023-11-11] MEDS: FAMOTIDINE 20 MG TAB PO SCH ×2 (08:07→21:53)
[2023-11-11 08:19] LABS: Basophils # (auto) 0.05 K/uL (0.00-0.20); Basophils % (auto) 0.5 %; Eosinophils # (auto) 0.27 K/uL (0.00-0.50); Eosinophils % (auto) 2.8 %; Immature Granulocytes # (auto) 0.19 K/uL (0.01-0.20); Lymphocytes # (auto) 0.94 K/uL (1.20-3.40); Lymphocytes % (auto) 9.7 %; Monocytes # (auto) 0.88 K/uL (0.11-0.59); Monocytes % (auto) 9.1 %; Neutrophils # (auto) 7.39 K/uL (1.40-6.50); Neutrophils % (auto) 75.9 %
[2023-11-11 08:36] LABS: Estimated Average Glucose 111 mg/dl; Hemoglobin A1C 5.5 % (4.5-5.6)
[2023-11-11] MEDS ORDERED: DAKIN'S SOLN 0.5% FULL STRENGTH 473ML BTL EXT STA (08:42)
--- NOTE | 2023-11-11 11:14 | Surgery Progress Note ---
Date of Service November 11, 2023 Assessment & Plan (1) Complication, postoperative infection: Plan: 62-year-old gentleman now 2 and half months out from a right total hip replacement with postoperative wound infection. This just developed over the past week he had. He had been doing X excellent up till this point. Plan: We discussed treatment options. Certainly there is some that warrants extensive and aggressive irrigation debridement and polyethylene and femoral head exchange. Hopefully the components will be well-fixed and will not require any component exchange. He will likely need a prolonged course of IV antibiotics of 6 weeks. The risks and benefits of irrigation debridement and polyethylene/head exchange were explained and he understands and desires to proceed. Informed consent was obtained. (2) Cellulitis: (3) Hypokalemia: (4) Postoperative complication of skin involving drainage from surgical wound: (5) Status post total hip replacement, right: Admission and Anticipated Discharge Date Admission Date: November 10, 2023 Subjective 62-year-old gentleman with history of multiple joint replacements now about 2 and half months out from a right uncomplicated total hip replacement. He is done extremely well until just about a week ago when he started develop some pain discomfort and some malaise. His symptoms progressed. He was brought to emergency room. His symptoms got worse just over the weekend. He started having some drainage from the inferior aspect of his wound. He has been admitted. His labs are elevated consistent with infection. Physical Exam Physical Exam: Physical examination is a pleasant middle-age male. He is lying in bed looks completely comfortable. Examination of the right hip and leg reveals some moderate diffuse swelling of the leg. He does have some redness around the incision site and a small area open area distally which is actively draining what looks to be purulent material. His leg lengths are equal. His hips located. He is neurologically intact. Results & Data Vital Signs (Past 12 Hours) Vital Signs Temp Pulse Pulse Resp BP Pulse Ox O2 Del Method 11/11/23 08:11 37.2 C 84 16 113/65 95 Room Air 11/11/23 07:47 Room Air 11/11/23 05:58 82 11/11/23 02:59 37.1 C 82 16 113/67 92 Room Air Laboratory Results White blood cell count is normal at 9.72. Hemoglobin 11.0. Hematocrit 32.6. Potassium 3.3. Sed rate was 104. C-reactive protein 34.66 PG Care Time/CCT Total # of Minutes Spent Total Time Spent with Patient: Total time spent is greater than 50% in coordination of care (as documented) at patient's floor/unit and/or counseling patient: Coding Level of Care Code None Diagnoses Complication, postoperative infection T81.40XA Encounter type: initial encounter Postoperative infection type: unspecified type Cellulitis L03.90 Site of cellulitis: unspecified site Hypokalemia E87.6 Postoperative complication of skin involving drainage from surgical wound L76.82 Status post total hip replacement, right Z96.641 (1) Complication, postoperative infection Encounter type: initial encounter Postoperative infection type: unspecified type Qualified Code(s): T81.40XA - Infection following a procedure, unspecified, initial encounter (2) Cellulitis Site of cellulitis: unspecified site Qualified Code(s): L03.90 - Cellulitis, unspecified
--- NOTE | 2023-11-11 11:15 | History & Physical Bridge Note ---
Date of Service November 11, 2023 History & Physical Bridge Note I have examined the patient, reviewed the History & Physical and in the interval since the performance of the History & Physical I have noted the following changes of clinical significance: no changes noted
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
[2023-11-11] MEDS ORDERED: MIDAZOLAM HCL 1 MG/ML 2ML VIAL ONE (12:41)
[2023-11-11] MEDS ORDERED: fentaNYL citrate PF 100 MCG/2 ML VIAL ONE ×3 (12:41→17:09)
[2023-11-11] MEDS ORDERED: PROPOFOL IV EMULSION 10 MG/ML 20 ML VIAL IV ONE (12:41)
[2023-11-11] MEDS ORDERED: LACTATED RINGER'S 1,000 ML IV SCH (13:45)
[2023-11-11] MEDS ORDERED: PROMETHAZINE HCL 6.25 MG in SODIUM CHLORIDE 0.9% 50 ML IV PRN (14:27)
[2023-11-11] MEDS ORDERED: ONDANSETRON INJ 2 MG/ML 2 ML VIAL IV PRN ×2 (14:27→18:23)
[2023-11-11] MEDS ORDERED: HYDROmorphone INJ 1 MG/ML SYRINGE IV PRN (14:27)
[2023-11-11] MEDS ORDERED: ATROPINE SULFATE 0.1 MG/ML 10ML SYR IV PRN (14:27)
[2023-11-11] MEDS ORDERED: BUPIVACAINE/EPINEPHRINE 0.5% MPF 1:200,000 30 ML VIAL ONE (14:52)
[2023-11-11] MEDS ORDERED: VANCOMYCIN HCL 1000MG/20ML VIAL ONE ×2 (15:17→15:26)
[2023-11-11] MEDS ORDERED: ROCURONIUM BROMIDE 10 MG/ML 5 ML VIAL IV ONE (15:33)
[2023-11-11] MEDS ORDERED: ONDANSETRON INJ 2 MG/ML 2 ML VIAL ONE (15:34)
[2023-11-11] MEDS ORDERED: LIDOCAINE 2% 2 ML VIAL/AMP(20MG/ML) INFIL ONE (15:34)
--- NOTE | 2023-11-11 16:27 | Electrocardiogram Report ---
Test Reason : Blood Pressure : / mmHG Vent. Rate : 078 BPM Atrial Rate : 078 BPM P-R Int : 106 ms QRS Dur : 154 ms QT Int : 444 ms P-R-T Axes : 037 235 042 degrees QTc Int : 506 ms Sinus rhythm Right bundle branch block Poor R wave progression, consider anterior IN vs. lead placement vs. LVH Abnormal ECG Confirmed by Taye Cruz ([id number]) on 11/11/2023 4:26:48 PM Referred By: REFERRED SELF Confirmed By:Los Cruz
[2023-11-11] MEDS ORDERED: cefTRIAXone SODIUM 2,000 MG in DEXTROSE 5 % MINI-B 50 ML IV SCH (16:30)
[2023-11-11] MEDS ORDERED: SUGAMMADEX SODIUM 200 MG/2 ML VIAL IV ONE (16:37)
--- NOTE | 2023-11-11 17:11 | Operative Report ---
PG Post Operative Report Pre & Post Diagnosis Operation Date: 11/11/23 07:00 Pre-Op Diagnosis: Right hip replacement infection Post-Op Diagnosis: Right hip replacement infection I identified the patient and participated in the time-out.: Yes Procedure Operation Date: 11/11/23 07:00 Actual Procedures p Right Incision and Drainage Hip(Right) - Easton Marcus MD s femoral head exchange (Right) - Easton Marcus MD Surgeon Easton Marcus MD Tape Cutting Machine Operator Edwin Tolliver PA-C Estimated Blood Loss 200 Findings Consistent with Post-Op Diagnosis Operative findings revealed significant hematoma with some wound dehiscence of the IT band. He did have 1 area of pus pocket around the IT band and vastus lateralis. The remainder of the hip joint looked fairly clean of infection. There was one localized area towards the inferior aspect of incision where there was clearly a purulent pocket. There was some blood and serosanguineous fluid in the hip joint but no obvious abscess. Components appear well-fixed. Specimens Right hip blood cultures x 3 Anesthesia Type General Complications none Disposition Accompanied Patient To Recovery: Yes Indications Patient is a 62-year-old gentleman now about 2 and half months out from a right uncomplicated total hip replacement. He was just seen about a month ago when does not is doing extremely well and back to work. About a week ago he started developing of some sickness and malaise. Over the weekend he started having some drainage from the inferior aspect of his wound. Presented to emergency room was admitted indicated for irrigation debridement. Description of Procedure Operative implant exchange included: 1. Femoral head exchange from a +5/36 mm ceramic articular ball to a similar +5/36 mm ceramic articular ball. The patient was taken to the operating, identified, placed on the operating table in supine position. All contact her from properly padded. Patient had been receiving IV antibiotics but we held any further antibiotics until cultures were obtained. A general anesthetic was implemented. Patient was then placed in the left lateral decubitus position. Next a roll was placed. Distal Birkett position was used for positioning. The right hip and leg were then prepped and draped in usual sterile fashion. A posterolateral approach to the hip was then performed through the curvilinear incision use previously. Sharp dissection carried through subcutaneous tissues. He had a very thick soft tissue envelope. There was a dehiscence of the IT band area. There was a hematoma. Did not look particularly infectious. I then extended this incision slightly distally and there was not one area was a pus pocket beneath the IT band and the lap around the vastus lateralis. This probab ly measured about 5 cm x 5 cm. We did obtain cultures at 3 different levels the morning of the pus pocket which was cultured #3. I exposed the posterior aspect of the hip. I then dislocated the hip we removed the head. I had extreme difficulty positioning this patient in getting the femur out of the way. I could expose the acetabulum but could not adequately expose it to remove the polyethylene. Considering the location of the area of abscess I elected not to make any further exposure. I elected not to change the polyethylene just change the femoral head. We irrigated the wound extensively. I then irrigated with full-strength Dakin solution. I used a toothbrush to scrub the acetabulum as well as the femoral neck and trunnion. Will let this sit for about 3 minutes then washed it out with normal saline. I then soaked the wound and hydrogen peroxide for 3 minutes. I also described the implants again. We washed this out and then soaked it with abated soak. This was also left in for about 3 to 5 minutes. We described the implants. I then irrigated this out with additional 3 L of pulsatile lavage solution. I then replaced the femoral head with a +5/36 mm ceramic articular ball. I then relocated the hip. It was completely stable. We irrigated again with extensive and normal saline for a total of 12 L. I then placed 2 g of vancomycin deep in the wound. We then were repaired and closed the IT band with #1 PDS suture in a running fashion. I elected not to place the stitches in the subcu tissues and then closed the skin with #1 Prolene suture in a simple fashion along with a 2-0 nylon's suture no vertical mattress fashion. Leg was then cleaned and dried and a Prevena VAC dressing was applied. The patient then brought Dandre and transferred to the recovery room in stable condition. Patient tolerated procedure well and there were no complications. Edwin Tolliver, my physician special education teaching assistant, was present for the entire procedure. His assistance was required for proper patient positioning, prepping and draping, surgical exposure, retraction, perform the technical details of the operation, closure of the incision site and placement of sterile bandage. I attest to the content of the Intraoperative Record and any orders documented therein. Any exceptions are noted below.
[2023-11-11] MEDS ORDERED: MEPERIDINE HCL 25 MG/ML CARP/VIAL ONE (17:28)
[2023-11-11] MEDS ORDERED: MEPERIDINE HCL 25 MG/ML CARP/VIAL IV ONE (17:29)
--- NOTE | 2023-11-11 17:52 | XRay Report ---
XR hip 1V RT w pelvis CLINICAL HISTORY: IN PACU - Post Surgical TECHNIQUE: 1 view of the right hip and single frontal view of the pelvis were obtained. Comparison: Comparison is made to hip radiographs 11/10/2023 FINDINGS: There is no evidence of an acute fracture. Redemonstration right hip arthroplasty and left femoral na il. No soft tissue abnormality is seen. IMPRESSION: Degenerative changes without evidence of acute abnormality. ACT 112: Negative or not required by law. Electronically signed by: Mu Mancuso M.D. 11/11/2023 5:51 PM
--- NOTE | 2023-11-11 17:57 | Anesthesiology Progress Note ---
Date of Service November 11, 2023 Anesthesia Post Procedure Vital Signs Vital Signs: Temp Pulse Pulse Pulse Resp BP Pulse Ox 11/11/23 17:55 38.1 C H 89 18 128/95 100 11/11/23 17:45 82 19 130/71 100 11/11/23 17:35 82 14 145/79 H 100 11/11/23 17:25 91 H 18 102/78 96 11/11/23 17:15 90 17 140/78 93 11/11/23 17:08 36.9 C 88 20 160/87 H 100 11/11/23 13:20 37.0 C 74 20 127/74 95 11/11/23 12:42 36.7 C 74 16 109/69 96 11/11/23 08:11 37.2 C 84 16 113/65 95 11/11/23 07:47 11/11/23 05:58 82 11/11/23 02:59 37.1 C 82 16 113/67 92 11/10/23 22:38 11/10/23 22:03 71 11/10/23 21:16 36.7 C 79 18 129/79 96 11/10/23 21:07 81 11/10/23 20:16 78 20 11/10/23 18:52 36.8 C 70 17 128/77 98 11/10/23 18:32 11/10/23 18:00 70 Pulse Ox O2 Del Method O2 Del Method O2 Flow Rate 11/11/23 17:55 Oxymask 3 11/11/23 17:45 Oxymask 4 11/11/23 17:35 Oxymask 4 11/11/23 17:25 Oxymask 4 11/11/23 17:15 Oxymask 5 11/11/23 17:08 Oxymask 5 11/11/23 13:20 Room Air 11/11/23 12:42 Room Air 11/11/23 08:11 Room Air 11/11/23 07:47 Room Air 11/11/23 05:58 11/11/23 02:59 Room Air 11/10/23 22:38 Room Air 11/10/23 22:03 11/10/23 21:16 Room Air 11/10/23 21:07 11/10/23 20:16 Room Air 11/10/23 18:52 Room Air 01/21/24 18:32 97 Room Air 11/10/23 18:00 Pain Intensity Right Hip: Pain Intensity: 5 Transfer of Care Handoff Completed per policy Notes Mental Status: alert / awake / arousable Patient Amnestic to Procedure: Yes Nausea / Vomiting: adequately controlled Pain: adequately controlled Airway Patency, RR, SpO2: stable & adequate BP & HR: stable & adequate Hydration State: stable & adequate Anesthetic Complications: no major complications apparent
[2023-11-11] MEDS ORDERED: bisacodyL 10 MG SUPP PR PRN (18:23)
[2023-11-11] MEDS ORDERED: METOCLOPRAMIDE HCL INJ 5 MG/ML 2 ML VIAL IV PRN (18:23)
[2023-11-11] MEDS ORDERED: NALOXONE HCL 0.4 MG/1 ML VIAL/CARP IV PRN (18:23)
[2023-11-11] MEDS ORDERED: TAMSULOSIN HCL 0.4 MG CAP PO PRN (18:23)
[2023-11-11] MEDS ORDERED: HYDROmorphone INJ 0.5 MG/0.5 ML SYR IV PRN (18:23)
[2023-11-11] MEDS ORDERED: MAGNESIUM HYDROXIDE SUSP 30 ML UDC PO PRN (18:23)
[2023-11-11] MEDS ORDERED: ALUMINUM/MAGNESIUM SUSP 30 ML UDC PO PRN (18:23)
[2023-11-11] MEDS: SODIUM CHLORIDE 0.9% 1,000 ML IV SCH (18:44)
[2023-11-11] MEDS: ASPIRIN 81 MG ECTAB PO SCH (21:52)
[2023-11-11] MEDS: DAPTOmycin 450 MG in SYRINGE 0 ML IV SCH (21:52)
[2023-11-11] MEDS: MELATONIN 3 MG TAB PO SCH (21:53)
[2023-11-11] MEDS: DOCUSATE SODIUM 100 MG CAP PO SCH (21:53)
[2023-11-11] MEDS: SENNA 8.6 MG TAB PO SCH (21:54)
[2023-11-11] MEDS: ACETAMINOPHEN 500 MG TAB PO SCH (21:57)
[2023-11-11] MEDS: POTASSIUM CHLORIDE CRTAB 20 MEQ TABCR PO SCH (22:02)
[2023-11-11] MEDS ORDERED: TRANEXAMIC ACID / 0.7% NACL 1,000 MG/100 ML BAG IV SCH (23:15)
[2023-11-12] MEDS: HYDROmorphone INJ 0.5 MG/0.5 ML SYR IV PRN ×5 (04:53→22:08)
[2023-11-12] MEDS: ACETAMINOPHEN 500 MG TAB PO SCH ×3 (06:11→21:00)
[2023-11-12 06:14] LABS: Basophils # (auto) 0.06 K/uL (0.00-0.20); Basophils % (auto) 0.5 %; Eosinophils % (auto) 0.9 %; Hematocrit (blood only) 29.5 % (42.0-52.0); Hemoglobin 9.6 g/dl (14.0-18.0); Immature Granulocytes # (auto) 0.37 K/uL (0.01-0.20); Immature Granulocytes % (auto) 3.3 %; Lymphocytes # (auto) 1.02 K/uL (1.20-3.40); Lymphocytes % (auto) 9.1 %; Mean Corpuscular Hemoglobin 29.4 pg (25.0-34.0); Mean Corpuscular Hgb Conc 32.5 g/dL (32.0-36.0); Mean Corpuscular Volume 90.2 fL (80.0-100.0); Mean Platelet Volume 8.9 fL (9.4-12.4); Monocytes # (auto) 0.92 K/uL (0.11-0.59); Monocytes % (auto) 8.2 %; Neutrophils # (auto) 8.71 K/uL (1.40-6.50); Platelet Count 306 K/uL (130-400); RDW Coefficient of Variation 13.4 % (11.5-14.5); RDW Standard Deviation 44.7 fL (36.4-46.3); Red Blood Count 3.27 M/uL (4.70-6.10); White Blood Count 11.18 K/ul (4.8-10.8)
[2023-11-12] MEDS: SODIUM CHLORIDE 0.9% 1,000 ML IV SCH (06:17)
[2023-11-12 06:31] LABS: Albumin Globulin Ratio 0.8 (0.9-2); Albumin Level 2.8 gm/dl (3.4-5.0); BUN Creatinine Ratio 21.5 (10-20); Bilirubin,Total 0.3 mg/dl (0.2-1.0); Calcium 8.3 mg/dl (8.6-10.3); Creatinine Clr Calc Pharmacy 121.6 ml/min; Est GFR (African American) 119.2 ml/min; Est GFR (Non-African American) 102.8 ml/min; Globulin 3.3 gm/dl (2.5-4.0); Magnesium 1.8 mg/dl (1.7-2.4); Potassium 3.7 mmol/L (3.5-5.1); Total Protein 6.1 gm/dl (6.0-8.3)
[2023-11-12 06:55] LABS: INR 1.1 (0.9-1.1); Prothrombin Time 12.1 Seconds (9.0-12.0)
[2023-11-12] MEDS: ASCORBIC ACID 500 MG TAB PO SCH ×2 (08:34→16:41)
[2023-11-12] MEDS: ASPIRIN 81 MG ECTAB PO SCH ×2 (08:35→19:59)
[2023-11-12] MEDS: FAMOTIDINE 20 MG TAB PO SCH ×2 (08:35→20:00)
[2023-11-12] MEDS: DOCUSATE SODIUM 100 MG CAP PO SCH ×2 (08:35→20:00)
[2023-11-12] MEDS: METOPROLOL TARTRATE 50 MG TAB PO SCH ×2 (08:35→19:59)
[2023-11-12] MEDS: MULTIVITAMIN TAB PO SCH (08:35)
[2023-11-12] MEDS: POTASSIUM CHLORIDE CRTAB 20 MEQ TABCR PO SCH ×2 (08:36→20:00)
--- NOTE | 2023-11-12 09:58 | Orthopedic Progress Note ---
Date of Service November 12, 2023 Assessment & Plan (1) Postoperative complication of skin involving drainage from surgical wound: (2) Status post total hip replacement, right: Plan Overall, he is doing quite well today with good pain control to the right hip. He will work with physical therapy and Occupational Therapy later today to work on ambulation and range of motion exercises right lower extremity. He is on aspirin for DVT prophylaxis. He will require IV antibiotics for at least 6 weeks. Medical team on board. Continue with hip precautions. Will follow-up with Dr. Marcus in 2 weeks for postoperative care. Will continue to follow. Subjective . Vince was seen and evaluated at bedside this morning resting comfortably in no apparent distress. He states that his pain is controlled at this time. Does note the wound VAC is working properly. He has been up and out of bed with no significant issues. He has yet to work with physical therapy or occupational therapy. He denies any other concerns today. Review of Systems All systems reviewed & are unremarkable except as noted in HPI & below. Physical Exam . On physical examination of the right hip, wound VAC is in place maintaining negative pressure. His right leg is out in full extension. He has active plantarflexion dorsiflexion to the right ankle. +2 DP and PT pulses. Less than 2-second capillary refill. Normal sensation. Neurovascular intact. Results & Data Results & Data Laboratory Results . Abnormal lab results 11/12/23 Range/Units 05:48 WBC 11.18 H (4.8-10.8) K/ul RBC 3.27 L (4.70-6.10) M/uL Hgb 9.6 L (14.0-18.0) g/dl Hct 29.5 L (42.0-52.0) % MPV 8.9 L (9.4-12.4) fL Neut # (Auto) 8.71 H (1.40-6.50) K/uL Lymph # (Auto) 1.02 L (1.20-3.40) K/uL Dewitt # (Auto) 0.92 H (0.11-0.59) K/uL Immature Gran # (Auto) 0.37 H (0.01-0.20) K/uL PT 12.1 H (9.0-12.0) Seconds BUN/Creatinine Ratio 21.5 H (10-20) Glucose 129 H (70-99(Fasting)) mg/dl Calcium 8.3 L (8.6-10.3) mg/dl Alkaline Phosphatase 107 H (34-104) U/L Albumin 2.8 L (3.4-5.0) gm/dl Albumin/Globulin Ratio 0.8 L (0.9-2) Diagnostic Findings . Postoperative x-rays of the right hip show prosthesis to be in anatomical alignment with no signs of fracture complication or loosening. PG Care Time/CCT Total # of Minutes Spent Total Time Spent with Patient: Total time spent is greater than 50% in coordination of care (as documented) at patient's floor/unit and/or counseling patient: Coding Level of Care Code 78628 Post Operative Follow-Up Diagnoses Postoperative complication of skin involving drainage from surgical wound L76.82 Status post total hip replacement, right Z96.641
[2023-11-12] MEDS ORDERED: CEFEPIME 2,000 MG in SYRINGE 0 ML IV SCH (14:15)
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
--- NOTE | 2023-11-12 17:16 | Hospitalist Progress Note ---
Date of Service November 12, 2023 Assessment & Plan (1) Postoperative complication of skin involving drainage from surgical wound: Plan: -Presented with one week of progressive pain, swelling, erythema at the right hip replacement site with recent opening/drainage of the distal aspect of the incision site Original carliy R VLAD 08/27/23 -Patient noted to have a leukocytosis, elevated ESR, CRP, afebrile daptomycin and ceftriaxone, IV antibiotics (6 weeks) followed by PO suppression (likely at least 3 months), pending final sensitivities RLE venous doppler is negative for DVT plan for surgical drainage 11/11/23, await intra operative cultures Acute blood loss anemia not needed transfusion -Pain control with tylenol and dilaudid (due to BHAVESH) added oxycodone on 11/12/2023 -Surgery has chosen twice daily aspirin for DVT prevention - (2) BHAVESH (acute kidney injury): Plan: BHAVESH is resolved Holding losartan-HCTZ hold postoperative lower blood pressures, reevaluate 11/13/2023 - UA and Renal US no hydronephrosis, questionable solid lesion left kidney recommend follow up imaging -Will start Plasmalyte at 80 mL/hr x 2 bags overnight hypokalemia replete (3) Obstructive sleep apnea of adult: Plan: -HS CPAP ordered (4) GERD (gastroesophageal reflux disease): Plan: -Continue famotidine (5) Hypertension: Plan: -Stable -Holding losartan-HCTZ for now with BHAVESH and infection -Will continue metoprolol Admission and Anticipated Discharge Date Admission Date: November 10, 2023 Subjective pt is with significant pain in his operative hip. Adjusting pain medications by adding oxycodone. Patient require parenteral Dilaudid today Drainage has been controlled with postop wound dressing Physical Exam Physical Exam: Awake alert appropriate. Patient is comfortable though complaining of pain Card exam is regular without murmurs Lungs are clear no wheezes or crackles Abdomen NABS soft and nontender Right lower extremity with good capillary refill and dorsalis pedis pulse Results & Data Results & Data Vital Signs (Past 12 Hours) Vital Signs Temp Pulse Resp BP Pulse Ox O2 Del Method 11/12/23 13:54 99.5 F 85 16 123/75 95 Room Air 11/12/23 11:10 99.7 F H 74 18 120/72 97 Room Air 11/12/23 07:37 99.9 F H 82 18 119/68 94 Room Air Laboratory Results Reviewed CBC Reviewed chemistry Reviewed preliminary laboratory showing Staphylococcus species without sensitivities at this point PG Care Time/CCT Total # of Minutes Spent Total Time Spent with Patient: Total time spent is greater than 50% in coordination of care (as documented) at patient's floor/unit and/or counseling patient: Coding Level of Care Code 58457 SUB INP/OBS CARE 3/50MIN Diagnoses Postoperative complication of skin involving drainage from surgical wound L76.82 BHAVESH (acute kidney injury) N17.9 Obstructive sleep apnea of adult G47.33 GERD (gastroesophageal reflux disease) K21.9 Hypertension I10
[2023-11-12] MEDS ORDERED: cefTRIAXone SODIUM 2,000 MG in DEXTROSE 5 % MINI-B 50 ML IV SCH (18:00)
[2023-11-12] MEDS: SENNA 8.6 MG TAB PO SCH (20:00)
[2023-11-12] MEDS: DAPTOmycin 450 MG in SYRINGE 0 ML IV SCH (20:57)
[2023-11-12] MEDS: MELATONIN 3 MG TAB PO SCH (20:59)
[2023-11-13] MEDS: ACETAMINOPHEN 500 MG TAB PO SCH ×3 (05:01→21:42)
[2023-11-13] MEDS: oxyCODONE HCL IR 5 MG TAB (IMMEDIATE RELEASE) PO PRN ×3 (05:39→18:33)
[2023-11-13 07:40] LABS: Basophils # (auto) 0.06 K/uL (0.00-0.20); Basophils % (auto) 0.4 %; Eosinophils # (auto) 0.39 K/uL (0.00-0.50); Eosinophils % (auto) 2.6 %; Hematocrit (blood only) 29.9 % (42.0-52.0); Hemoglobin 9.9 g/dl (14.0-18.0); Immature Granulocytes # (auto) 0.74 K/uL (0.01-0.20); Lymphocytes # (auto) 1.31 K/uL (1.20-3.40); Lymphocytes % (auto) 8.9 %; Mean Corpuscular Hemoglobin 29.6 pg (25.0-34.0); Mean Corpuscular Hgb Conc 33.1 g/dL (32.0-36.0); Mean Corpuscular Volume 89.3 fL (80.0-100.0); Mean Platelet Volume 8.8 fL (9.4-12.4); Monocytes # (auto) 1.02 K/uL (0.11-0.59); Monocytes % (auto) 6.9 %; Neutrophils % (auto) 76.2 %; Platelet Count 318 K/uL (130-400); RDW Coefficient of Variation 13.4 % (11.5-14.5); RDW Standard Deviation 43.9 fL (36.4-46.3); Red Blood Count 3.35 M/uL (4.70-6.10); White Blood Count 14.72 K/ul (4.8-10.8)
[2023-11-13 08:06] LABS: INR 1.1 (0.9-1.1); Prothrombin Time 11.8 Seconds (9.0-12.0)
[2023-11-13 08:13] LABS: Bilirubin,Total 0.4 mg/dl (0.2-1.0); Calcium 8.8 mg/dl (8.6-10.3); Magnesium 1.9 mg/dl (1.7-2.4); Potassium 4.2 mmol/L (3.5-5.1)
[2023-11-13 08:19] LABS: Albumin Globulin Ratio 0.7 (0.9-2); Creatinine Clr Calc Pharmacy 129.5 ml/min; Est GFR (African American) 122.3 ml/min; Est GFR (Non-African American) 105.5 ml/min; Globulin 4.1 gm/dl (2.5-4.0); Total Protein 7.1 gm/dl (6.0-8.3)
[2023-11-13] MEDS: ASCORBIC ACID 500 MG TAB PO SCH ×2 (08:40→18:33)
[2023-11-13] MEDS: MULTIVITAMIN TAB PO SCH (08:41)
[2023-11-13] MEDS: ASPIRIN 81 MG ECTAB PO SCH ×2 (08:41→19:44)
[2023-11-13] MEDS: FAMOTIDINE 20 MG TAB PO SCH ×2 (08:41→19:48)
[2023-11-13] MEDS: METOPROLOL TARTRATE 50 MG TAB PO SCH ×2 (08:41→19:43)
[2023-11-13] MEDS: DOCUSATE SODIUM 100 MG CAP PO SCH ×2 (08:41→19:48)
[2023-11-13] MEDS: HYDROmorphone INJ 0.5 MG/0.5 ML SYR IV PRN (10:19)
--- NOTE | 2023-11-13 11:37 | Orthopedic Progress Note ---
Date of Service November 13, 2023 Assessment & Plan (1) Postoperative complication of skin involving drainage from surgical wound: (2) Status post total hip replacement, right: Plan Overall, he is doing quite well today with good pain control to the right hip. He will work with physical therapy and Occupational Therapy later today to work on ambulation and range of motion exercises right lower extremity. He is on aspirin for DVT prophylaxis. He will require IV antibiotics for at least 6 weeks. Currently on daptomycin and ceftriaxone. Medical team and infectious disease on board. PICC line was inserted yesterday and working well. Infectious disease currently working on a discharge plan which will include IV antibiotics for 6 weeks followed by p.o. suppression for likely 3 months if not 6 months and likely adjunctive rifampin. Continue with hip precautions. Will follow-up with Dr. Marcus in 2 weeks for postoperative care. From an orthopedic standpoint, he is stable for discharge. Will continue to follow. Subjective .Vince was seen and evaluated at bedside this morning resting comfortably in no apparent distress. He states that his pain is controlled at this time. Does note the wound VAC is working properly. He has been up and out of bed with no significant issues. He has worked with therapy and notes that this is going well. He does note that he feels a little bit more sore this time around in the last time but is aware that due to this being a revision surgery this is expected. He denies any other concerns today. Review of Systems All systems reviewed & are unremarkable except as noted in HPI & below. Physical Exam . On physical examination of the right hip, wound VAC is in place maintaining negative pressure. His right leg is out in full extension. He has active plantarflexion dorsiflexion to the right ankle. +2 DP and PT pulses. Less than 2-second capillary refill. Normal sensation. Neurovascular intact. Results & Data Results & Data Laboratory Results . Abnormal lab results 11/13/23 Range/Units 07:19 WBC 14.72 H (4.8-10.8) K/ul RBC 3.35 L (4.70-6.10) M/uL Hgb 9.9 L (14.0-18.0) g/dl Hct 29.9 L (42.0-52.0) % MPV 8.8 L (9.4-12.4) fL Neut # (Auto) 11.20 H (1.40-6.50) K/uL [place] # (Auto) 1.02 H (0.11-0.59) K/uL Immature Gran # (Auto) 0.74 H (0.01-0.20) K/uL Glucose 139 H (70-99(Fasting)) mg/dl Alkaline Phosphatase 106 H (34-104) U/L Albumin 3.0 L (3.4-5.0) gm/dl Globulin 4.1 H (2.5-4.0) gm/dl Albumin/Globulin Ratio 0.7 L (0.9-2) Diagnostic Findings . PG Care Time/CCT Total # of Minutes Spent Total Time Spent with Patient: Total time spent is greater than 50% in coordination of care (as documented) at patient's floor/unit and/or counseling patient: Coding Level of Care Code 58323 Post Operative Follow-Up Diagnoses Postoperative complication of skin involving drainage from surgical wound L76.82 Status post total hip replacement, right Z96.641
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
[2023-11-13] MEDS: ceFAZolin 2000MG 2,000 MG/15 ML SYR IV SCH ×2 (12:48→19:43)
[2023-11-13] MEDS: rifAMPin 150 MG CAPSULE PO SCH ×2 (12:48→19:45)
--- NOTE | 2023-11-13 17:38 | Hospitalist Progress Note ---
Date of Service November 13, 2023 Assessment & Plan (1) Postoperative complication of skin involving drainage from surgical wound: Plan: -Presented with one week of progressive pain, swelling, erythema at the right hip replacement site with recent opening/drainage of the distal aspect of the incision site Original carliy R VLAD 08/27/23 -Patient noted to have a leukocytosis, elevated ESR, CRP, afebrile daptomycin and ceftriaxone, IV antibiotics (6 weeks) followed by PO suppression (likely at least 3 months), pending final sensitivities RLE venous doppler is negative for DVT ID suggesting Cephalexin 2gm q8 for 6 weeks followed by cefadroxil 500mg bid rifampin 500mg bid if tolerated Weekly lab monitoring while on IV antibiotics: CBC w/ diff, CMP, ESR, CRP plan for surgical drainage 11/11/23, await intra operative cultures Acute blood loss anemia not needed transfusion -Pain control with tylenol and oxycodone increased dose on 11/13/2023 -Surgery has chosen twice daily aspirin for DVT prevention - (2) BHAVESH (acute kidney injury): Plan: BHAVESH is resolved Holding losartan-HCTZ hold postoperative lower blood pressures, reevaluate 11/13/2023 - UA and Renal US no hydronephrosis, questionable solid lesion left kidney recommend follow up imaging ordered CT kidney and urine cytology - hypokalemia replete (3) Obstructive sleep apnea of adult: Plan: -HS CPAP ordered (4) GERD (gastroesophageal reflux disease): Plan: -Continue famotidine (5) Hypertension: Plan: -Stable blood pressure remains controlled -Holding losartan-HCTZ for now with lower blood pressures -Will continue metoprolol Admission and Anticipated Discharge Date Admission Date: November 10, 2023 Subjective pt still with improved but persistent pain, concerned about us with left renal mass, ordered CT kidney pt with picc line in place Physical Exam Physical Exam: Awake alert appropriate. Patient is comfortable though complaining of pain Card exam is regular without murmurs Lungs are clear no wheezes or crackles Abdomen NABS soft and nontender Results & Data Results & Data Vital Signs (Past 12 Hours) Vital Signs Temp Pulse Resp BP Pulse Ox O2 Del Method 11/13/23 16:03 98.4 F 84 18 120/74 96 Room Air 11/13/23 06:57 99.0 F 78 17 125/72 95 Room Air Laboratory Results review cbc review chemistry PG Care Time/CCT Total # of Minutes Spent Total Time Spent with Patient: Total time spent is greater than 50% in coordination of care (as documented) at patient's floor/unit and/or counseling patient: Coding Level of Care Code 06542 SUB INP/OBS CARE 3/50MIN Diagnoses Postoperative complication of skin involving drainage from surgical wound L76.82 BHAVESH (acute kidney injury) N17.9 Obstructive sleep apnea of adult G47.33 GERD (gastroesophageal reflux disease) K21.9 Hypertension I10
--- NOTE | 2023-11-13 19:43 | CT Scan Report ---
Exam(s): CT RENAL Without Contrast EXAM: CT Abdomen and Pelvis Without Intravenous Contrast, Renal Stone Protocol CLINICAL HISTORY: Reason for exam: left kidney mass seen on u/s. TECHNIQUE: Axial computed tomography images of the abdomen and pelvis without intravenous contrast using renal protocol. CTDI is 28.2 mGy and DLP is 761.59 mGy-cm. Automated exposure control was utilized for the study. A dose lowering technique was utilized adhering to the principles of ALARA. COMPARISON: No relevant prior studies available. FINDINGS: Lower thorax: Left lower lobe atelectasis and small left pleural effusion. ABDOMEN: Liver: Unremarkable. Gallbladder and bile ducts: Unremarkable. No calcified stones. No ductal dilation. Pancreas: Unremarkable. No ductal dilation. Spleen: Unremarkable. No splenomegaly. Adrenals: Unremarkable. No mass. Right kidney and ureter: Unremarkable. No obstructing stones. No hydronephrosis. Left kidney and ureter: Unremarkable. No obstructing stones. No hydronephrosis. Stomach and bowel: Unremarkable. No obstruction. No mucosal thickening. PELVIS: Appendix: No findings to suggest acute appendicitis. Bladder: Unremarkable. No stones. Reproductive: Unremarkable as visualized. ABDOMEN and PELVIS: Intraperitoneal space: Unremarkable. No free air. No significant fluid collection. Bones/joints: Unremarkable. No acute fracture. No dislocation. Soft tissues: Unremarkable. Vasculature: Unremarkable. No abdominal aortic aneurysm. Lymph nodes: Unremarkable. No enlarged lymph nodes. IMPRESSION: Left lower lobe atelectasis and small left pleural effusion. Electronically signed by: Paulo Bustos MD 11/13/23 19:42 PM
[2023-11-13] MEDS: SENNA 8.6 MG TAB PO SCH (19:44)
[2023-11-13] MEDS: MELATONIN 3 MG TAB PO SCH (21:42)
[2023-11-14] MEDS: ceFAZolin 2000MG 2,000 MG/15 ML SYR IV SCH ×2 (04:59→12:23)
[2023-11-14] MEDS: ACETAMINOPHEN 500 MG TAB PO SCH ×2 (05:00→14:00)
[2023-11-14 08:21] LABS: Basophils # (auto) 0.05 K/uL (0.00-0.20); Basophils % (auto) 0.4 %; Eosinophils # (auto) 0.38 K/uL (0.00-0.50); Eosinophils % (auto) 3.4 %; Hematocrit (blood only) 31.7 % (42.0-52.0); Hemoglobin 10.4 g/dl (14.0-18.0); Immature Granulocytes # (auto) 0.45 K/uL (0.01-0.20); Lymphocytes # (auto) 1.05 K/uL (1.20-3.40); Lymphocytes % (auto) 9.3 %; Mean Corpuscular Hemoglobin 29.4 pg (25.0-34.0); Mean Corpuscular Hgb Conc 32.8 g/dL (32.0-36.0); Mean Corpuscular Volume 89.5 fL (80.0-100.0); Mean Platelet Volume 8.9 fL (9.4-12.4); Monocytes # (auto) 0.68 K/uL (0.11-0.59); Neutrophils # (auto) 8.72 K/uL (1.40-6.50); Neutrophils % (auto) 76.9 %; Platelet Count 351 K/uL (130-400); RDW Coefficient of Variation 13.4 % (11.5-14.5); RDW Standard Deviation 44.5 fL (36.4-46.3); Red Blood Count 3.54 M/uL (4.70-6.10); White Blood Count 11.33 K/ul (4.8-10.8)
[2023-11-14] MEDS: rifAMPin 150 MG CAPSULE PO SCH (08:49)
[2023-11-14] MEDS: MULTIVITAMIN TAB PO SCH (08:50)
[2023-11-14] MEDS: METOPROLOL TARTRATE 50 MG TAB PO SCH (08:50)
[2023-11-14] MEDS: ASPIRIN 81 MG ECTAB PO SCH (08:50)
[2023-11-14] MEDS: ASCORBIC ACID 500 MG TAB PO SCH ×2 (08:50→17:50)
[2023-11-14 08:54] LABS: INR 1.1 (0.9-1.1); Prothrombin Time 11.5 Seconds (9.0-12.0)
[2023-11-14] MEDS: DOCUSATE SODIUM 100 MG CAP PO SCH (09:02)
[2023-11-14] MEDS: FAMOTIDINE 20 MG TAB PO SCH (09:02)
[2023-11-14] MEDS: SENNA 8.6 MG TAB PO SCH (09:06)
[2023-11-14] MEDS: oxyCODONE HCL IR 5 MG TAB (IMMEDIATE RELEASE) PO PRN ×2 (09:12→15:52)
--- NOTE | 2023-11-14 09:51 | Orthopedic Progress Note ---
Date of Service November 14, 2023 Assessment & Plan (1) Postoperative complication of skin involving drainage from surgical wound: (2) Status post total hip replacement, right: Plan Overall, he is doing quite well today with good pain control to the right hip. He will work with physical therapy and Occupational Therapy later today to work on ambulation and range of motion exercises right lower extremity. He is on aspirin for DVT prophylaxis. He will require IV antibiotics for at least 6 weeks. Currently on daptomycin and ceftriaxone. Medical team and infectious disease on board. PICC line was inserted yesterday and working well. Infectious disease currently working on a discharge plan which will include IV antibiotics for 6 weeks followed by p.o. suppression for likely 3 months if not 6 months and likely adjunctive rifampin. Current infectious disease recommending is cephalexin 2 gm q8 for 6 weeks followed by cefadroxil 500 mg twice daily with rifampin 500 mg twice daily if tolerated. Continue with hip precautions. Will follow-up with Dr. Marcus in 2 weeks for postoperative care. From an orthopedic standpoint, he is stable for discharge. Will continue to follow. Subjective .Vince was seen and evaluated at bedside this morning resting comfortably in no apparent distress. He states that his pain is controlled at this time. Does note the wound VAC is working properly. He has been up and out of bed with no significant issues. He has worked with therapy and notes that this is going well. He does note that he feels a little bit more sore this time around in the last time but is aware that due to this being a revision surgery this is expected. He denies any other concerns today. He is hopeful for discharge today. Review of Systems All systems reviewed & are unremarkable except as noted in HPI & below. Physical Exam .On physical examination of the right hip, wound VAC is in place maintaining negative pressure. His right leg is out in full extension. He has active plantarflexion dorsiflexion to the right ankle. +2 DP and PT pulses. Less than 2-second capillary refill. Normal sensation. Neurovascular intact. Results & Data Results & Data Laboratory Results . Diagnostic Findings . PG Care Time/CCT Total # of Minutes Spent Total Time Spent with Patient: Total time spent is greater than 50% in coordination of care (as documented) at patient's floor/unit and/or counseling patient: Coding Level of Care Code 34060 Post Operative Follow-Up Diagnoses Postoperative complication of skin involving drainage from surgical wound L76.82 Status post total hip replacement, right Z96.643
--- NOTE | 2023-11-14 19:49 | Discharge Summary ---
Date of Service November 14, 2023 Admission HPI Per Admitting Provider Vince is a 62 year old male with a PMH significant for Right Total Hip Arthroplasty with Dr. Marcus on 08/27/23, Obesity, HTN, asthma, GONZALES on HS CPAP, dyslipidemia, non-alcoholic fatty liver disease, and GERD who presented to the [facility] ED on 11/10/23 due to concerns for right hip replacement site infection. He remained stable in the ED. Labs were significant for a leukocytosis of 12 with neutrophil predominance of 9.92, increased immature granulocyte count of 0.31, cr of 1.2 (baseline is near 0.7), BUN of 49, potassium of 3.4, alk phos of 163. Venous doppler of the RLE was read as negative for signs of DVT. Xray of the right hip/pelvis was read as " Prior to admission the patient was given a dose of Vancomycin and ceftriaxone. At the time of the exam the patient was sitting in bed in no acute distress. He states that he had been doing well since his right hip replacement. He was doing yard work on the weekend of the of this month and denies any trauma. On the he stated to notice increased pain at the right hip placement site. Over the past week he has noticed increased pain, swelling and erythema. Approximately 48 hours ago he was sleeping in his recliner and woke to notice a significant amount of fluid draining from the distal aspect of the procedure site. He went to work yesterday but his symptoms continued to progress leading him to come to the ED today. He has been using tylenol and tramadol for severe pain and has been taking BID PO Diclofenac Sodium for arthritis pain "for years". He denies recent fever, chest pain, cough, SOB, abd pain, nausea, vomiting, diarrhea, dysuria, hematuria, melena, and recent trauma. He has not been eating or drinking well over the past week due to his symptoms. He is a full code and would want his to make medical decisions for him if he cannot make them himself. Please refer to Dr. Ching's attestation for any changes to the treatment plan Principal Diagnosis hip infection Discharge Data Allergies Allergy/AdvReac Type Severity Reaction Status Date / Time No Known Drug Allergies Allergy Unknown . Verified 08/27/23 11:49 Consultations 11/10/23 14:16 ED Decision to Admit Stat 11/10/23 16:44 Consult Orthopedic Surgery Routine 11/12/23 12:44 Consult Infectious Diseases Routine Procedures Performed Operation Date: 11/11/23 07:00 Actual Procedures s Right Incision and Drainage Hip(Right) - Easton Marcus MD p Poly Exchange(Right) - Easton Marcus MD Ordered Studies 11/10/23 13:58 US venous doppler LE RT Stat 11/10/23 16:18 US Renal Bladder [US renal/blad retro comp] Urgent 11/13/23 17:26 CT kidney [CT renal wo con] Routine Hospital Course (1) Postoperative complication of skin involving drainage from surgical wound: -Presented with one week of progressive pain, swelling, erythema at the right hip replacement site with recent opening/drainage of the distal aspect of the incision site Original surgey R VLAD 08/27/23 -Patient noted to have a leukocytosis, elevated ESR, CRP, afebrile --feels good walking well w PT and wants to go home - home on IV cefazolin - set up with case management. of note - minor discrepencies were identified between the plan set in place by my team preceding me and ID recommendations - informed PCP of these, although they are minor - Rx had end date of 12/19 instead of 12/23, labs expanded from weekly CBC, CMP to also include CRP, ESR. obviously also passed along chronic suppression recommendations since that will occcur after IV Rx complete RLE venous doppler is negative for DVT Weekly lab monitoring while on IV antibiotics: CBC w/ diff, CMP, ESR, CRP intra op cultures noted Acute blood loss anemia not needed transfusion -Pain control with tylenol and oxycodone increased dose on 11/13/2023 -Surgery has chosen twice daily aspirin for DVT prevention ID recommendations - Start cefazolin 2g IV q8h. Upon discharge, for OPAT can change to cefazolin to 6g IV once daily continuous infusion to continue for a 6-week course (11/12/23 12/24/23). - After completion of IV antibiotics, would start PO suppression (at least 3 months, can use cefadroxil 500 mg PO BID or other MSSA-active agent), and would continue adjunctive rifampin if tolerating. - Start rifampin 450 mg PO BID. If any issues tolerating (e.g., nausea), can change to 300 mg PO BID. Would continue this for at least 3-6 months, as an adju nct with IV abx and PO suppressive antibiotic --- Drug toxicity counseling for rifampin: orange discoloration of body fluids, hepatotoxicity, pruritis - Weekly lab monitoring while on IV antibiotics: CBC w/ diff, CMP, ESR, CRP - Will request to add rifampin, minocycline, levofloxacin susceptibilities onto 11/11 OR isolatelikely will be pending at time of discharge - Ensure close follow-up with ortho and PCP after discharge - Recommend referral to local outpatient ID follow-up if available - (2) BHAVESH (acute kidney injury): BHAVESH is resolved resume losartan/HCTZ at discharge, outpt f/u, weekly labs as per above (3) Obstructive sleep apnea of adult: -HS CPAP ordered (4) GERD (gastroesophageal reflux disease): -Continue famotidine (5) Hypertension: home on home meds Total Time Total Time Spent Total Time Spent (In Minutes): <30 Discharge Plan Discharge Items Patient Disposition: Home - Home Health Services Reason For Visit: RIGHT HIP REPLACEMENT INFECTION, BHAVESH, HYPOKALEMIA Discharge Diagnosis: hip infection Activity: Resume your previous activity Non-emergency contact: Primary Care Provider Call non-emergency contact if: you have any medication questions Follow-up/Referrals: Taye Hernandez MD [Primary Care Provider] - 11/20/23 2:00 pm (w/ Jacqueline Hermosillo ) Easton Marcus MD [Physician] - 11/29/23 11:20 am (Orthopedic follow-up 2-3 weeks from surgery day.) Diet: Regular Addtl Attending Provider Instructions: ACTIVITY RECOMMENDATIONS: Physical Therapy: * Aggressive physical therapy is not usually needed. You will learn to take care of yourself safely and walk. * Follow the "Hip Precautions Instructions." * In some cases, the high school social studies teacher at the hospital will arrange to have a therapist come to your house for the first couple of weeks to help you learn these skills. * You need to practice on your own or with the help of a family member as needed. * When you learn these skills, most of the therapy can be done on your own. Home Exercise: * You were shown a series of exercises in the hospital. Do these exercises three to four times each day including the exercises you were shown in physical therapy. Walking: * Get up and walk several times each day. For the first four weeks, try not to stand or walk for more than one hour at a time. If you do stand or walk for more than one hour, you will not hurt anything, but your leg will likely swell. * As you feel comfortable, you may change from the walker or crutches to a cane and then to independent walking. MEDICATIONS: New Medicine: * You will likely be taking one or more of these medicines: 1. Tramadol - Take, as directed, when you need it, every six hours to control your pain. 2. Aspirin - Thins your blood to lessen the chance of forming a blood clot. * The most common side effects of pain medicine and iron are nausea and constipation. If nausea or constipation is too much of a problem or if you have any questions about your new medicines or doses, call [facility] at [phone]. We will try to help you manage these issues. "VERY IMPORTANT TO READ AND REVIEW" Pain: * The immediate post-operative period after hip replacement surgery is often quite painful. * You are given a prescription for pain medicine. You should take it, as directed, when you need it, especially before physical therapy and before going to bed. Pain that interferes with sleep is very common and can last several months. * You will likely need pain medicine for the first two to four weeks. It will not stop all of the pain. The pain will lessen and as you feel better, you may change to milder pain medicine such as Tylenol. * The most common side effects of pain medicine are nausea and constipation, so don't take more than you need. SPECIAL CARE INSTRUCTIONS: TEDs/Elastic Stockings: * The white elastic stockings help limit swelling and prevent blood clots from forming in your legs. The more you wear them, the more they work. * Wear them for six weeks. Incision Site Care: * Remove dressing postoperative day 7 and then shower. Keep direct shower pressure off the incision site. * After showering, cover roberta with dry gauze and change daily or more frequently if the dressing is getting saturated with drainage. * May completely stop using bandage if wound is dry and no drainage * [place] are removed between 2 and 3 weeks post-op. If your follow-up appointment is made before 2 weeks, please have your appointment re- scheduled. It is too early to remove the roberta. Prevention of Infection: * Take antibiotics one hour before any dental cleaning, dental work, urological procedure, gastrointestinal procedure or any invasive surgery in order to prevent your new joint from getting infected. * You may get the antibiotics from the doctor performing the procedure or you may call our office at before and we will call in a prescription to the pharmacy of your choice. Things to Watch For: * Drainage from the incision site that occurs more than one week after your surgery. * Severely increased leg pain or swelling. * Increased redness at the incision site. * Fever above 102 degrees Fahrenheit. * Unusual chest pain or shortness of breath. * Unusual pain or burning with urination. Call [facility] at with any of the above problems or if you have any questions about your medicines or recovery. FOLLOW UP VISIT: Make an appointment to see your doctor for approximately two weeks after surgery for a progress check and staple removal by calling the office at . Pending Studies at Discharge: Yes (weekly labs - CBC, CMP, ESR - results to primary care physician and ortho) Stand-Alone Forms: My [facility] [facility], Pain - Opioid Pain Management, Smoking Cessation Medications and DC Order Prescriptions: New rifampin 150 mg Capsule 450 mg PO BID Qty: 80 0RF Continued zinc 50 mg tablet 50 mg PO HS metoprolol tartrate 50 mg tablet 50 mg PO BID Qty: 180 3RF Rx Instructions: take 1 tablet by mouth twice a day amoxicillin 500 mg tablet See Rx Instructions .ROUTE .COMPLEX Qty: 4 0RF Dose Instruction: take 4 tablets by mouth 1 HOUR PRIOR TO PROCEDURE Rx Instructions: take 4 tablets by mouth 1 HOUR PRIOR TO PROCEDURE famotidine 20 mg tablet 20 mg PO BID Qty: 180 3RF ondansetron 4 mg tablet,disintegrating 4 mg PO Q8 PRN (Reason: nausea) Qty: 20 1RF Rx Instructions: Take as needed for nausea atorvastatin 40 mg tablet 40 mg PO HS Qty: 90 3RF tramadol 50 mg tablet 50 mg PO Q6H PRN (Reason: pain) Qty: 120 0RF multivitamin tablet 1 tab PO HS cinnamon bark 500 mg capsule 1,000 mg PO HS vitamin E acetate 1 mg PO HS vitamin B complex Tablet Extended Release 1 tab PO HS melatonin 3 mg Tablet 6 mg PO HS losartan-hydrochlorothiazide 100-25 mg tablet 1 tab PO PM cholecalciferol (vitamin D3) 125 mcg (5,000 unit) capsule 125 mcg PO HS diclofenac sodium 75 mg tablet,delayed release (DR/EC) 75 mg PO BID aspirin [Kirill Low Dose Aspirin] 81 mg tablet,delayed release (DR/EC) 81 mg PO HS Rx Instructions: Take to prevent blood clots. acetaminophen [Tylenol Extra Strength] 500 mg tablet 1,000 mg PO TID PRN (Reason: pain) Discharge Orders: Discharge Order (Routine); Ordered 11/14/23 Ordered By: Paulo Turner/Other Patient Handouts: DVT Post Op Prevention Admission Data Admit Date/Time: 11/10/23 15:43 Attending Provider: Paulo Cortez Admit Provider: Easton Marcus Primary Care Provider: Taye Hernandez Other Providers: Uche Ching; Yoan Davis; [facility]; Steffanie Jones; Karie Jaramillo; Catarina Pride; Meron Pichardo; Loreto Johnson; Brigitte Irby; Mariola Hartley; Ena Valentino Other Interventions: Discharge Summary Assessment (RN) Last Done: 11/14/23 16:55 Coding Level of Care Code 84398 IN/OBS DISCH 30 MIN/LESS Diagnoses Postoperative complication of skin involving drainage from surgical wound L76.82 BHAVESH (acute kidney injury) N17.9 Obstructive sleep apnea of adult G47.33 GERD (gastroesophageal reflux disease) K21.9 Hypertension I10
== END 2023-11-14 19:45 | disposition home health service (06) | DRG 467 ==
LOC: ED 13:11 → EDINP 15:43 → SUATTDRO 15:43 → 2N 20:16 → 3N 11-12 13:53
PROC: M.IDHIP (2023-11-11 07:00)